=== PATIENT | male | born 1985 | race Two or more races ===

== ENCOUNTER 2025-03-12 15:54 | Inpatient (IN) | payer MEDICAID, OTHER ==
[~2025-03-12] VITALS: Ht 190.5 cm; Wt 101.0 kg
[2025-03-12] MEDS: MECLIZINE HCL 25 MG TAB PO ONE (16:30)
[2025-03-12] MEDS: SODIUM CHLORIDE 0.9% 1,000 ML IV ONE (16:30)
--- NOTE | 2025-03-12 16:51 | ED.PDOC ---
History of Present Illness HPI Comments 39 year old quadriplegic male was BIBA for the c/c of Generalized Weakness and associated N/D, and Dizziness. Pt states that his symptoms have been onset for the past 2x days with no alleviating factors. Pt denies any blood in stool, and F/C and Nephrostomy tube to left side. No other associated symptoms, modifiers, recent injuries or sick contacts present at this time. Vital signs were stable on arrival. 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 Manager Past Medical History PAST MEDICAL HISTORY: Denies Past Medical History (Other): Patient is a quadriplegic Surgical History: Unknown Family History Family History: Unknown Social History Smoker: Non-Smoker Alcohol: Denies ETOH Use Drugs: Denies Drug Use Lives In: Home Constitutional: reports: weakness; denies: chills, diaphoresis, fatigue, fever, malaise, sweats, others EENTM: denies: blurred vision, double vision, ear bleeding, ear discharge, ear drainage, ear pain, ear ringing, eye pain, eye redness, hearing loss, mouth pain, mouth swelling, nasal discharge, nose bleeding, nose congestion, nose pain , photophobia, tearing, throat pain, throat swelling, voice changes, others Respiratory: denies: cough, hemoptysis, orthopnea, SOB at rest, shortness of breath, SOB with excertion, stridor, wheezing, others Cardiovascular: denies: chest pain, dizzy spells, diaphoresis, Dyspnea on exertion, edema, irregular heart beat, left arm pain, lightheadedness, palpitations, PND, syncope, others Gastrointestinal: reports: diarrhea, nausea; denies: abdomen distended, abdominal pain, blood streaked bowels, constipated, dysphagia, difficulty swallowing, hematemesis, melena, poor appetite, poor fluid intake, rectal bleeding, rectal pain, vomiting, others Genitourinary: denies: burning, dysuria, flank pain, frequency, hematuria, incontinence, penile discharge, penile sore, pain, testicle pain, testicle swelling, urgency, others Neurological: reports: dizziness; denies: fainting, headache, left sided numbness, left sided weakness, numbness, paresthesia, pre-existing deficit, right sided numbness, right sided weakness, seizure, speech problems, tingling, tremors, weakness, others Musculoskeletal: denies: back pain, gout, joint pain, joint swelling, muscle pain, muscle stiffness, neck pain, others Integumetry: denies: bruises, change in color, change in hair/nails, dryness, laceration, lesions, lumps, rash, wounds, others Allergic/Immunocompromised: denies: Difficulty Healing, Frequent Infections, Hives, Itching, others Hematologic/Lymphatic: denies: anemia, blood clots, easy bleeding, easy bruising, swollen glands, others Endocrine: denies: excessive hunger, excessive sweating, excessive thirst, excessive urination, flushing, intolerance to cold, intolerance to heat, unexplained weight gain, unexplained weight loss, others Psychiatric: denies: anxiety, bipolar disorder, depression, hopeless, panic disorder, schizophrenia, sleepless, suicidal, others All Other Systems: Reviewed and Negative Physical Exam General Appearance: Mild Distress (Moderate distress due to dizziness concerns.), Obese HEENT: Normal ENT Inspection, Pharynx Normal, TMs Normal Neck: Non-Tender Respiratory: Chest Non-Tender, Lungs Clear, No Accessory Muscle Use, No Respiratory Distress, Normal Breath Sounds Cardiovascular: No Edema, No JVD, No Murmur, No Gallop, Normal Peripheral Pulses, Regular Rate/Rhythm Breast Exam: Deferred Gastrointestinal: No Organomegaly, Non Tender, No Pulsatile Mass, Normal Bowel Sounds, Soft Genitalia: Deferred Pelvic: Deferred Rectal: Deferred Extremities: Other (Patient is a quadriplegic) Musculoskeletal : Apperance: Normal Neurologic: Alert, Normal Mood Cerebellar Function: NOT DONE Reflexes: NOT DONE Skin: Dry, Normal Color, Warm Lymphatic: No Adenopathy Was a procedure done? Was a procedure done?: No Differential Dx Considerations may include: Sepsis, electrolyte abnormality, UTI X-Ray, Labs, Meds, VS Vital Signs Date Time Temp Pulse Resp B/P (MAP) Pulse Ox O2 Delivery O2 Flow Rate FiO2 03/12/25 18:02 98.4 87 14 90/43 (59) 94 98.4 03/12/25 17:57 83 11 97 Room Air* 0 21 03/12/25 16:18 98.3 78 18 134/82 (99) 100 98.3 03/12/25 16:01 87 Lab Test 03/12/25 17:47 03/12/25 17:09 Range/Units Urine Color Colorless Yellow Urine Clarity Clear Clear Urine pH 5.5 5.0-9.0 Urine Specific [place] 1.007 1.001-1.035 Urine Protein Negative Negative Urine Ketones Negative Negative Urine Blood Negative Negative /uL Urine Nitrite Negative Negative Urine Bilirubin Negative Negative Urine Urobilinogen Normal Negative mg/dL Urine Leukocyte Esterase 2+ Negative /uL Urine RBC 6 0 - 3 /hpf Urine Microscopic WBC 5 H 0-3 /HPF Urine Squamous Epithelial Cells Few <5 /hpf Urine Bacteria Few H None Seen /hpf Urine Yeast (Budding) Many None Seen /hpf Urine Glucose Normal Normal mg/dL White Blood Count 8.0 4.4-10.8 10^3/uL Red Blood Count 3.28 L 4.5-5.90 10^6/uL Hemoglobin 8.6 L 13.5-17.5 g/dL Hematocrit 25.0 L 41.0-53.0 % Mean Corpuscular Volume 76.2 L 80.0-100.0 fL Mean Corpuscular Hemoglobin 26.1 L 28.0-32.0 pg Mean Corpuscular Hemoglobin Concent 34.3 32.0-36.0 g/dL Red Cell Distribution Width 17.9 H 11.8-14.3 % Platelet Count 315 140-450 10^3/uL Mean Platelet Volume 7.6 6.9-10.8 fL Neutrophils (%) (Auto) 84.4 H 37.0-80.0 % Lymphocytes (%) (Auto) 8.8 L 10.0-50.0 % Monocytes (%) (Auto) 4.6 0.0-12.0 % Eosinophils (%) (Auto) 1.7 0.0-7.0 % Basophils (%) (Auto) 0.5 0.0-2.0 % Neutrophils # (Auto) 6.8 1.6-8.6 10 ^3/uL Lymphocytes # (Auto) 0.7 0.4-5.4 10 ^3/uL Monocytes # (Auto) 0.4 0-1.3 10 ^3/uL Eosinophils # (Auto) 0.1 0-0.8 10 ^3/uL Basophils # (Auto) 0 0-0.2 10 ^3/uL Nucleated Red Blood Cells 0.1 % Sodium Level 129 L 136-145 mmol/L Potassium Level 4.7 3.5-5.1 mmol/L Chloride Level 98 98-107 mmol/L Carbon Dioxide Level 24 20-31 mmol/L Anion Gap 7 5-15 Blood Urea Nitrogen 31 H 9-23 mg/dL Creatinine 1.05 0.700-1.30 mg/dL Glomerular Filtration Rate Calc 91 >90 mL/min BUN/Creatinine Ratio 29.5 H 10.0-20.0 Serum Glucose 92 74-106 mg/dL Lactic Acid Level 1.2 0.4-2.0 mmol/L Calcium Level 8.8 8.7-10.4 mg/dL Troponin I High Sensitivity < 3 L </=54 ng/L Lipase 167 H 12-53 U/L Current Medications Medications (Trade) Dose Ordered Sig/Jina Route Start Time Stop Time Status Last Admin Sodium Chloride 1,000 ml @ 250 mls/hr Q4H ONCE IV 03/12/25 16:30 03/12/25 20:29 03/12/25 16:30 Meclizine HCl (Antivert Tablet) 25 mg ONCE ONCE PO 03/12/25 16:30 03/12/25 16:31 DC 03/12/25 16:30 X-Ray, Labs, Meds, VS Comment All studies performed the ED were evaluated by me personally. Patient's urinaly sis confirmed a UTI. Patient's serum studies showed a hyponatremia state as well as a significantly elevated lipase. Patient will be admitted for IV antibiotics to address his urinary tract concerns as well as management of his pancreatitis. Time of 1ST Reevaluation: 19:06 Reevaluation 1ST: Improved Consultation: PCP Patient Education/Counseling: Diagnosis, Treatment, Need For Follow Up Family Education/Counseling: Diagnosis, Treatment, No Family Present SEPSIS Sepsis Screen Date sepsis recognized/suspect: Mar 12, 2025 Time Sepsis recognized/suspect: 6 Recent Procedure: No On Antibiotic Therapy: No Respiratory Rate >20: No Heart Rate >90: No Temp<36 C (96.8 F) or >38.3 C: No SBP <90 or MAP <65 mmHG: No New Acute Mental Status Change: No Is the patient on CPAP, BIPAP,: No Physician Orders Electrocardigram (03/12/25 16:05) Sodium Chloride 0.9% (03/12/25 16:30) Straightcath If Unable To Void (03/12/25 16:25) Heplock Iv (03/12/25 ) Vital Signs Date Time Temp Pulse Resp B/P (MAP) Pulse Ox O2 Delivery O2 Flow Rate FiO2 03/12/25 18:02 98.4 87 14 90/43 (59) 94 98.4 03/12/25 17:57 83 11 97 Room Air* 0 21 03/12/25 16:18 98.3 78 18 134/82 (99) 100 98.3 03/12/25 16:01 87 Laboratory Tests Test 03/12/25 17:09 Lactic Acid Level 1.2 mmol/L (0.4-2.0) White Blood Count 8.0 10^3/uL (4.4-10.8) Medications Medications Dose Ordered Sig/Jina Route Start Time Stop Time Status Last Admin Dose Admin Meclizine HCl 25 mg ONCE ONCE PO 03/12/25 16:30 03/12/25 16:31 DC 03/12/25 16:30 Sodium Chloride 1,000 ml @ 250 mls/hr Q4H ONCE IV 03/12/25 16:30 03/12/25 20:29 03/12/25 16:30 Departure 1 Departure Time of Disposition: 19:07 Impression: Primary Impression: Pancreatitis Additional Impressions: Hyponatremia Urinary tract infection Disposition: ADMITTED INPATIENT Condition: Stable Discharged With: Self Critical Care Note Critical Care Time?: No Stability Stability form required: No Heart Score Heart Score: Heart Score Response (Comments) Value History N/A 0 EKG N/A 0 Age N/A 0 Risk Factors N/A 0 Troponin N/A 0 Total 0 I personally scribed for NISHA HOOVER PAC ([email or web address]) on 03/12/25 at 16:51. Electr onically submitted by Conner Theodore ([email or web address]). NISHA HOOVER PAC Mar 12, 2025 16:51
[2025-03-12 17:41] LABS: Potassium 4.7 mmol/L (3.5-5.1)
[2025-03-12 17:42] LABS: Anion Gap 7 (5-15); Carbon Dioxide 24 mmol/L (20-31)
[2025-03-12 17:43] LABS: Calcium 8.8 mg/dL (8.7-10.4); Hematocrit 25.0 % (41.0-53.0); Hemoglobin 8.6 g/dL (13.5-17.5); Mean Corpuscular Hemoglobin 26.1 pg (28.0-32.0); Mean Corpuscular Volume 76.2 fL (80.0-100.0); Nucleated Red Blood Cells % 0.1 %
[2025-03-12 17:47] LABS: Chloride 98 mmol/L (98-107); Glucose 92 mg/dL (74-106); Sodium 129 mmol/L (136-145)
[2025-03-12 17:48] LABS: BUN/Creatinine Ratio 29.5 (10.0-20.0); Blood Urea Nitrogen 31 mg/dL (9-23); Lipase 167 U/L (12-53)
[2025-03-12 17:57] VITALS: PULSE 83; RESP 11; O2SAT 97
[2025-03-12 18:24] LABS: Urine Budding Yeast MANY /hpf (None Seen); Urine Protein, UAD Negative (Negative)
--- NOTE | 2025-03-12 19:15 | ECG ---
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
[2025-03-12] MEDS: cefTRIAXone 1GM/50ML D5W 50 ML IV ONE (19:33)
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
[2025-03-12] MEDS: SODIUM CHLORIDE 0.9% 1,000 ML IV SCH (22:14)
[2025-03-12] MEDS ORDERED: cefTRIAXone 1GM/50ML D5W 50 ML IV ONE (22:15)
[2025-03-12 22:34] LABS: Alanine Aminotransferase 32.0 U/L (7-40); Albumin 3.5 g/dL (3.2-4.8); Alkaline Phosphatase 91.0 U/L (46-116); Bilirubin, Direct 0.3 mg/dL (<0.3); Bilirubin, Total 0.5 mg/dL (0.2-1.0); Magnesium 2.2 mg/dL (1.6-2.6); Total Protein 7.4 g/dL (5.7-8.2)
[2025-03-12] MEDS: SODIUM CHLORIDE 0.9% 500 ML IV ONE (22:36)
[2025-03-12] MEDS: PANTOPRAZOLE 40 MG/10 ML VIAL INJ IV ONE (22:42)
[2025-03-13] VITALS (8 sets, daily range): BP systolic 104–136; BP diastolic 64–78; PULSE 84–100; RESP 18; TEMP 98–99.6; O2SAT 92–98
[2025-03-13 00:02] LABS: Cholesterol 114 mg/dL (< 200)
[2025-03-13 00:05] LABS: HDL Cholesterol 24 mg/dL (40-59); Triglycerides 176 mg/dL (< 150)
[2025-03-13] MEDS: LACTATED RINGER'S 1,000 ML IV ONE (01:01)
[2025-03-13 01:43] LABS: Opiate Scree,Urine Neg (NEGATIVE)
--- NOTE | 2025-03-13 01:45 | DVH ---
CLINICAL HISTORY: Ruled out acute pancreatitis TECHNIQUE: CT of the abdomen and pelvis was performed without intravenous contrast. This exam was per formed according to our departmental dose optimization program. Up-to-date CT equipment and radiation dose reduction techniques are utilized as appropriate. CTDI: 0.17+ 22.28 DLP: 1360.14 WID: COMPARISON: None FINDINGS: Lower Thorax: Linear bibasilar atelectasis and/or scarring. Normal-sized heart. Slight hypodensity of the blood pool relative to the myocardium indicative of anemia. Liver and Biliary system: Hepatomegaly measuring 21 cm craniocaudal. No definite hepatic lesion. Cho lelithiasis in a dilated gallbladder which measures 5.4 cm transverse. No biliary ductal dilatation. Spleen: Mild splenomegaly. Adrenal Glands and Kidneys: Normal adrenal glands. There is a left percutaneous nephrostomy tube in p lace. There is a 9.5 mm calculus in the proximal left ureter. Additional calculi are seen in the dist al left ureter measuring up to 7.1 mm on series 2, image 88. No left hydronephrosis. Additional nono bstructing left renal calculi. There is left perinephric soft tissue stranding. No right hydronephr osis or nephrolithiasis. Pancreas and Retroperitoneum: Unremarkable. Aorta and Major Vessels: Unremarkable. Bowel, Mesentery and Peritoneal space: Normal caliber small and large bowel. There is no free intrape ritoneal air or fluid collection. Pelvis: The bladder is decompressed about a Hope catheter. Mild bladder wall thickening. Prostate an d seminal vesicles are grossly unremarkable. There is no pelvic lymphadenopathy. Abdominal wall and Osseous Structures: Multilevel lower thoracic and lumbar spondylosis. Multilevel s uperior and inferior schmorl's nodes most pronounced along the inferior endplate of L4 and superior e ndplate of L5. Moderate osteoarthritis of the bilateral hips. IMPRESSION: Dilated gallbladder containing cholelithiasis. There is clinical concern for acute cholecystitis, re commend obtaining right upper quadrant ultrasound for further evaluation. Left percutaneous nephrostomy tube in place without left hydronephrosis. Multiple calculi within the left ureter, largest of which in the proximal left ureter measures 9.5 mm . Additional nonobstructing left renal calculi are noted. Mild hepatomegaly. Mild bladder wall thickening which may be due to decompression about a Hope catheter. Correlate wit h urinalysis. Anemia suggested. Correlate with CBC.
[2025-03-13 01:56] LABS: Amphetamine Screen, Urine Neg (NEGATIVE); Barbiturate Scree,Urine Neg (NEGATIVE); Benzodiazephine Screen, Urine Neg (NEGATIVE); Cannabinoid Screen, Urine Neg (NEGATIVE); Cocaine Screen, Urine Neg (NEGATIVE); Phencyclidine Screen, Urine Neg (NEGATIVE)
[2025-03-13] MEDS: SODIUM CHLORIDE 0.9% 1,000 ML IV SCH (02:50)
[2025-03-13 04:24] LABS: INR 1.02 (0.9-1.15); Partial Thromboplastin Time 30.2 SEC (24.5-34.5); Prothrombin Time 10.8 sec (9.3-11.8)
--- NOTE | 2025-03-13 06:06 | DVH ---
INDICATION: acute cholecystitis TECHNIQUE: Multiple real-time sonographic images of the abdomen were obtained. COMPARISON: None FINDINGS: The liver is heterogenous in echogenicity. The liver measures 17cm. No intrahepatic biliar y ductal dilatation is noted. The gallbladder wall measures 0.4 cm and is thickened. Multiple gallstones. Common bile duct not see n. No pericholecystic fluid is noted. The right kidney measures 12cm. No hydronephrosis. The pancreas is not well visualized due to obscuration from bowel gas. The visualized portions of the IVC and aorta are grossly unremarkable. IMPRESSION: FINDINGS SUSPICIOUS FOR ACUTE CHOLECYSTITIS. HEPATOMEGALY/HEPATIC STEATOSIS
[2025-03-13] MEDS: PIPERACILLIN-TAZOB 3.375GM 100 ML IV SCH (06:47)
[2025-03-13] MEDS ORDERED: cefTRIAXone 1GM/50ML D5W 50 ML IV SCH (09:00)
[2025-03-13 09:49] LABS: Hematocrit 26.8 % (41.0-53.0); Hemoglobin 8.9 g/dL (13.5-17.5); Mean Corpuscular Hemoglobin 25.8 pg (28.0-32.0); Mean Corpuscular Volume 77.9 fL (80.0-100.0); Nucleated Red Blood Cells % 0.0 %
[2025-03-13 10:04] LABS: Alanine Aminotransferase 23 U/L (7-40); Albumin 3.5 g/dL (3.2-4.8); Alkaline Phosphatase 81 U/L (46-116); Anion Gap 10 (5-15); BUN/Creatinine Ratio 25.0 (10.0-20.0); Bilirubin, Total 0.5 mg/dL (0.2-1.0); Blood Urea Nitrogen 23 mg/dL (9-23); Calcium 9.4 mg/dL (8.7-10.4); Carbon Dioxide 21 mmol/L (20-31); Chloride 106 mmol/L (98-107); Glucose 83 mg/dL (74-106); Potassium 4.2 mmol/L (3.5-5.1); Sodium 137 mmol/L (136-145); Total Protein 7.3 g/dL (5.7-8.2)
[2025-03-13 10:09] LABS: Iron 33.0 ug/dL (65-175); Total Iron Binding Capacity 240.0 ug/dL (250-425)
[2025-03-13] MEDS: PANTOPRAZOLE 40 MG/10 ML VIAL INJ IV SCH (10:43)
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
[2025-03-13] MEDS: D5W/SOD CHL 0.45% 1,000 ML IV SCH (18:44)
[2025-03-14] VITALS (8 sets, daily range): BP systolic 93–119; BP diastolic 61–78; PULSE 76–101; RESP 16–18; TEMP 96.3–99.6; O2SAT 94–97
[2025-03-14 08:28] LABS: Hematocrit 26.7 % (41.0-53.0); Hemoglobin 8.9 g/dL (13.5-17.5); Mean Corpuscular Hemoglobin 26.4 pg (28.0-32.0); Mean Corpuscular Volume 79.3 fL (80.0-100.0); Nucleated Red Blood Cells % 0.1 %
[2025-03-14 08:40] LABS: Anion Gap 9 (5-15); Carbon Dioxide 23 mmol/L (20-31); Potassium 4.0 mmol/L (3.5-5.1); Sodium 139 mmol/L (136-145)
[2025-03-14 08:41] LABS: Calcium 9.5 mg/dL (8.7-10.4)
[2025-03-14 08:46] LABS: BUN/Creatinine Ratio 18.8 (10.0-20.0); Blood Urea Nitrogen 18 mg/dL (9-23); Glucose 89 mg/dL (74-106)
[2025-03-14 08:49] LABS: Chloride 107 mmol/L (98-107)
[2025-03-14] MEDS: HYDROcodone-ACET 5/325MG TAB PO PRN (18:44)
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
[2025-03-15] VITALS (8 sets, daily range): BP systolic 109–147; BP diastolic 70–119; PULSE 59–82; RESP 16–18; TEMP 96.8–98.1; O2SAT 96–100
[2025-03-15 06:15] LABS: Hematocrit 25.8 % (41.0-53.0); Hemoglobin 8.5 g/dL (13.5-17.5); Mean Corpuscular Hemoglobin 26.2 pg (28.0-32.0); Mean Corpuscular Volume 79.5 fL (80.0-100.0); Nucleated Red Blood Cells % 0.1 %
[2025-03-15 06:28] LABS: Alanine Aminotransferase 19 U/L (7-40); Albumin 3.6 g/dL (3.2-4.8); Alkaline Phosphatase 78 U/L (46-116); Anion Gap 9 (5-15); BUN/Creatinine Ratio 15.5 (10.0-20.0); Blood Urea Nitrogen 16 mg/dL (9-23); Calcium 9.4 mg/dL (8.7-10.4); Carbon Dioxide 24 mmol/L (20-31); Potassium 4.3 mmol/L (3.5-5.1); Sodium 140 mmol/L (136-145); Total Protein 7.6 g/dL (5.7-8.2)
[2025-03-15 06:29] LABS: Bilirubin, Total 0.3 mg/dL (0.2-1.0)
[2025-03-15 06:35] LABS: Chloride 107 mmol/L (98-107); Glucose 113 mg/dL (74-106)
[2025-03-15] MEDS ORDERED: VANCOMYCIN PER PHARMACY 0 MG IV SCH (13:00)
[2025-03-15] MEDS: CEFEPIME 1GM/ 50ML 50 ML IV ONE (14:00)
[2025-03-15] MEDS: CEFEPIME 1GM/ 50ML 50 ML IV SCH (14:00)
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
[2025-03-15] MEDS: VANCOMYCIN 1GM/200ML PM 250 ML IV SCH (15:38)
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
[2025-03-16] VITALS (8 sets, daily range): BP systolic 95–130; BP diastolic 59–76; PULSE 74–102; RESP 17–20; TEMP 98–99.3; O2SAT 94–100
[2025-03-16] MEDS: VANCOMYCIN 1.25GM/250ML 250 ML IV SCH (01:43)
[2025-03-16 06:41] LABS: Mean Corpuscular Hemoglobin 26.3 pg (28.0-32.0)
[2025-03-16 06:44] LABS: Hematocrit 27.3 % (41.0-53.0); Hemoglobin 9.1 g/dL (13.5-17.5); Mean Corpuscular Volume 78.6 fL (80.0-100.0); Nucleated Red Blood Cells % 0.0 %
[2025-03-16 07:11] LABS: Alanine Aminotransferase 16 U/L (7-40); Albumin 3.6 g/dL (3.2-4.8); Alkaline Phosphatase 77 U/L (46-116); Anion Gap 11 (5-15); BUN/Creatinine Ratio 16.9 (10.0-20.0); Blood Urea Nitrogen 13 mg/dL (9-23); Calcium 8.9 mg/dL (8.7-10.4); Carbon Dioxide 23 mmol/L (20-31); Chloride 106 mmol/L (98-107); Glucose 79 mg/dL (74-106); Potassium 3.9 mmol/L (3.5-5.1); Sodium 140 mmol/L (136-145); Total Protein 7.6 g/dL (5.7-8.2)
[2025-03-16 07:12] LABS: Bilirubin, Total 0.4 mg/dL (0.2-1.0)
--- NOTE | 2025-03-16 09:15 | DVHPN2 ---
Progress Note Date Seen: Mar 16, 2025 Has the PT tested + for MRSA If YES, has PT been informed?: No Medical Necessity Reason Pt with a Central, PICC or Fol: No The following are medically ne: Zhang Catheter Reason for zhang catheter: Bladder Retention/Obstruc, Total Immobilization Objective vital signs Vital Sign Date Time Temp Pulse Resp B/P (MAP) Pulse Ox O2 Delivery O2 Flow Rate FiO2 03/16/25 07:54 Room Air* 0 21 03/16/25 05:00 98.1 87 18 130/68 (88) 96 98.1 Total Intake and Output 03/15/25 03/15/25 03/16/25 15:00 23:00 07:00 Intake Total 50 ml 150 ml Output Total 200 ml 800 ml Balance -150 ml -650 ml medications Current Medications Medications Dose Ordered Sig/Jina Route Start Time Stop Time Status Last Admin Dose Admin Pantoprazole Sodium 40 mg DAILY IV 03/13/25 10:00 03/15/25 10:51 40 MG Dextrose/Sodium Chloride 1,000 ml @ 125 mls/hr Q8H IV 03/13/25 14:45 03/16/25 06:11 125 MLS/HR Acetaminophen 325 mg Q4HP PRN PO 03/14/25 18:15 Acetaminophen/ Hydrocodone Bitart 1 tab Q6HPRN PRN PO 03/14/25 18:15 03/16/25 02:18 1 TAB Vancomycin HCl 0 ml @ 0 mls/hr UD IV 03/15/25 13:00 Metronidazole 100 ml @ 100 mls/hr Q8H IV 03/15/25 21:00 03/16/25 05:52 100 MLS/HR Cefepime HCl 50 ml @ 12.5 mls/hr Q8HR IV 03/15/25 14:00 03/16/25 05:52 12.5 MLS/HR Vancomycin HCl 250 ml @ 200 mls/hr Q8H IV 03/16/25 00:00 03/16/25 08:16 200 MLS/HR laboratory and microbiology Laboratory Tests 03/16/25 05:54 Test 03/16/25 05:54 Range/Units Serum Glucose 79 74-106 mg/dL Microbiology Date/Time Source Procedure Growth Status 03/14/25 01:40 Voided Urine Urine Culture - Preliminary Resulted 03/13/25 06:50 Nose MRSA Screen - Final Complete 03/13/25 02:15 Blood Blood Culture - Preliminary NO GROWTH AFTER 72 HOURS OF INCUBATION. Resulted 03/12/25 21:50 Stool Clostridium difficile Toxin Assay - Final Complete Problem List/Assessment/Plan Problem List/Assessment/Plan AFEBRILE VSS ABD SOFT NON TENDER REPEAT LIPASE HIDA SCAN CONTINUE CLOSE OBSERVATION Plan discussed with: Patient ANISH ADHIKARI MD Mar 16, 2025 09:15
[2025-03-16] MEDS: MORPHINE SULFATE INJ 2 MG/ml SYRG IV ONE (10:45)
--- NOTE | 2025-03-16 13:53 | DVH ---
Procedure: NM NM HIDA SCAN Exam Date: 03/16/2025 09:12 AM Clinical History: Pain; Diagnose cholecystitis Comparison Study: 03/13/2025 Nuclear Medicine Hepatobiliary Scan. Technique: Following the intravenous administration of 6 mCi of technetium 99m labeled Mebrofenin multiple plana r abdominal planar images were obtained in anterior projection in 5 minute intervals for45 minutes . Right lateral images were obtained at 3 hours after injection. Findings/Impression: Gallbladder is not visualized consistent with acute cholecystitis. There is prompt excretion of radiotracer into the small bowel suggestive of patent common bile duct.
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
[2025-03-17] VITALS (8 sets, daily range): BP systolic 96–158; BP diastolic 46–90; PULSE 62–97; RESP 16–19; TEMP 97.9–99; O2SAT 96–100
[2025-03-17 09:37] LABS: Hemoglobin 9.0 g/dL (13.5-17.5); Nucleated Red Blood Cells % 0.1 %
[2025-03-17 09:39] LABS: Hematocrit 27.7 % (41.0-53.0); Mean Corpuscular Hemoglobin 25.4 pg (28.0-32.0); Mean Corpuscular Volume 78.2 fL (80.0-100.0)
[2025-03-17 09:56] LABS: Alanine Aminotransferase 17 U/L (7-40); Albumin 3.6 g/dL (3.2-4.8); Alkaline Phosphatase 72 U/L (46-116); Anion Gap 9 (5-15); BUN/Creatinine Ratio 20.5 (10.0-20.0); Bilirubin, Total 0.4 mg/dL (0.2-1.0); Blood Urea Nitrogen 16 mg/dL (9-23); Calcium 9.4 mg/dL (8.7-10.4); Carbon Dioxide 25 mmol/L (20-31); Glucose 91 mg/dL (74-106); Potassium 3.7 mmol/L (3.5-5.1); Sodium 142 mmol/L (136-145); Total Protein 7.3 g/dL (5.7-8.2)
[2025-03-17 10:06] LABS: Chloride 108 mmol/L (98-107)
--- NOTE | 2025-03-17 11:03 | DVHPN2 ---
Progress Note Date Seen: Mar 17, 2025 Has the PT tested + for MRSA If YES, has PT been informed?: No Medical Necessity Reason Pt with a Central, PICC or Fol: Yes The following are medically ne: Zhang Catheter Reason for zhang catheter: Bladder Retention/Obstruc, Total Immobilization Objective vital signs Vital Sign Date Time Temp Pulse Resp B/P (MAP) Pulse Ox O2 Delivery O2 Flow Rate FiO2 03/17/25 08:32 98.4 78 19 128/82 (97) 99 98.4 03/16/25 20:00 Room Air* 0 21 Total Intake and Output 03/16/25 03/16/25 03/17/25 15:00 23:00 07:00 Intake Total 918 ml 950 ml Output Total 900 ml 400 ml Balance 18 ml 550 ml medications Current Medications Medications Dose Ordered Sig/Jina Route Start Time Stop Time Status Last Admin Dose Admin Pantoprazole Sodium 40 mg DAILY IV 03/13/25 10:00 03/17/25 08:49 40 MG Dextrose/Sodium Chloride 1,000 ml @ 125 mls/hr Q8H IV 03/13/25 14:45 03/17/25 05:40 125 MLS/HR Acetaminophen 325 mg Q4HP PRN PO 03/14/25 18:15 Acetaminophen/ Hydrocodone Bitart 1 tab Q6HPRN PRN PO 03/14/25 18:15 03/16/25 22:15 1 TAB Vancomycin HCl 0 ml @ 0 mls/hr UD IV 03/15/25 13:00 Metronidazole 100 ml @ 100 mls/hr Q8H IV 03/15/25 21:00 03/17/25 05:40 100 MLS/HR Cefepime HCl 50 ml @ 12.5 mls/hr Q8HR IV 03/15/25 14:00 03/17/25 05:40 12.5 MLS/HR Vancomycin HCl 250 ml @ 200 mls/hr Q8H IV 03/16/25 00:00 Hold 03/16/25 08:16 200 MLS/HR Vancomycin HCl 250 ml @ 200 mls/hr Q12H IV 03/17/25 12:00 UNV laboratory and microbiology Laboratory Tests 03/17/25 09:00 Test 03/17/25 09:00 Range/Units Serum Glucose 91 74-106 mg/dL Microbiology Date/Time Source Procedure Growth Status 03/14/25 01:40 Voided Urine Urine Culture - Final Complete 03/13/25 06:50 Nose MRSA Screen - Final Complete 03/13/25 02:15 Blood Blood Culture - Preliminary NO GROWTH AFTER 72 HOURS OF INCUBATION. Resulted 03/12/25 21:50 Stool Clostridium difficile Toxin Assay - Final Complete Problem List/Assessment/Plan Problem List/Assessment/Plan AFEBRILE VSS ABD SOFT NON TENDER REPEAT LIPASE TRENDING DOWN HIDA SCAN POSITIVE HIGH RISK FOR SURGERY LIPASE ELEVATED TRENDING DOWN OPTIONS DISCUSSED PT TO DECIDE ALLOW CLEAR LIQUIDS CONSIDER EMERGENT SURGERY BASED ON ONGOING EVAL NURSE AT BEDSIDE Plan discussed with: Patient ANISH ADHIKARI MD Mar 17, 2025 11:03
[2025-03-17] MEDS ORDERED: VANCOMYCIN 1.25GM/250ML 250 ML IV SCH (12:00)
[2025-03-17] MEDS: VANCOMYCIN 1.25GM/250ML 250 ML IV SCH (12:11)
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
[2025-03-18] VITALS (19 sets, daily range): BP systolic 71–142; BP diastolic 33–92; PULSE 63–103; RESP 12–17; TEMP 97.4–98.7; O2SAT 92–100
[2025-03-18 07:06] LABS: Alanine Aminotransferase 12 U/L (7-40); Albumin 3.6 g/dL (3.2-4.8); Alkaline Phosphatase 71 U/L (46-116); Anion Gap 11 (5-15); BUN/Creatinine Ratio 14.9 (10.0-20.0); Bilirubin, Total 0.3 mg/dL (0.2-1.0); Blood Urea Nitrogen 10 mg/dL (9-23); Calcium 8.8 mg/dL (8.7-10.4); Carbon Dioxide 21 mmol/L (20-31); Glucose 92 mg/dL (74-106); Potassium 3.7 mmol/L (3.5-5.1); Sodium 139 mmol/L (136-145); Total Protein 7.5 g/dL (5.7-8.2)
[2025-03-18 07:07] LABS: Chloride 107 mmol/L (98-107); Lipase 63 U/L (12-53)
[2025-03-18 07:18] LABS: Hematocrit 29.8 % (41.0-53.0); Hemoglobin 9.6 g/dL (13.5-17.5); Mean Corpuscular Hemoglobin 26.1 pg (28.0-32.0); Mean Corpuscular Volume 81.1 fL (80.0-100.0); Nucleated Red Blood Cells % 0.3 %
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
--- NOTE | 2025-03-18 10:14 | DVHPN2 ---
Progress Note Date Seen: Mar 18, 2025 Has the PT tested + for MRSA If YES, has PT been informed?: No Medical Necessity Reason Pt with a Central, PICC or Fol: Yes The following are medically ne: Zhang Catheter Reason for zhang catheter: Bladder Retention/Obstruc, Total Immobilization Objective vital signs Vital Sign Date Time Temp Pulse Resp B/P (MAP) Pulse Ox O2 Delivery O2 Flow Rate FiO2 03/18/25 09:00 98.1 103 15 142/86 (104) 93 98.1 03/18/25 07:58 Room Air* 0 21 Total Intake and Output 03/17/25 03/17/25 03/18/25 15:00 23:00 07:00 Intake Total 1400 ml 810 ml 1100 ml Output Total 731 ml 1350 ml Balance 1400 ml 79 ml -250 ml medications Current Medications Medications Dose Ordered Sig/Jina Route Start Time Stop Time Status Last Admin Dose Admin Pantoprazole Sodium 40 mg DAILY IV 03/13/25 10:00 03/17/25 08:49 40 MG Dextrose/Sodium Chloride 1,000 ml @ 125 mls/hr Q8H IV 03/13/25 14:45 03/18/25 05:23 125 MLS/HR Acetaminophen 325 mg Q4HP PRN PO 03/14/25 18:15 Acetaminophen/ Hydrocodone Bitart 1 tab Q6HPRN PRN PO 03/14/25 18:15 03/17/25 21:35 1 TAB Vancomycin HCl 0 ml @ 0 mls/hr UD IV 03/15/25 13:00 Metronidazole 100 ml @ 100 mls/hr Q8H IV 03/15/25 21:00 03/18/25 05:15 100 MLS/HR Cefepime HCl 50 ml @ 12.5 mls/hr Q8HR IV 03/15/25 14:00 03/18/25 05:25 12.5 MLS/HR Vancomycin HCl 250 ml @ 200 mls/hr Q12H IV 03/17/25 12:00 03/18/25 00:15 200 MLS/HR laboratory and microbiology Laboratory Tests 03/18/25 06:05 Test 03/18/25 06:05 Range/Units Serum Glucose 92 74-106 mg/dL Microbiology Date/Time Source Procedure Growth Status 03/14/25 01:40 Voided Urine Urine Culture - Final Complete 03/13/25 06:50 Nose MRSA Screen - Final Complete 03/13/25 02:15 Blood Blood Culture - Final NO GROWTH AFTER 5 DAYS OF INCUBATION. Complete 03/12/25 21:50 Stool Clostridium difficile Toxin Assay - Final Complete Problem List/Assessment/Plan Problem List/Assessment/Plan AFEBRILE VSS ABD SOFT TENDER HIDA SCAN POSITIVE HIGH RISK FOR SURGERY LIPASE ELEVATED TRENDING DOWN OPTIONS DISCUSSED PT TO DECIDE KEEP NPO CONSIDER EMERGENT IR EVAL FOR PERCUTANEOUS CHOLECYSTOSTOMY NURSE AT BEDSIDE Plan discussed with: Patient My Orders My Orders Orders - ANISH ADHIKARI MD Procedure Category Date Status Time Clear Liq Diet DIET 03/17/25 Transmitted Lunch Dietary Evaluation Review Comments: 1) TPN if continue NPO 2) Advance deit as medically feasible Expected Outcomes/Goals: To meet >75% estimated needs Fu 3-5 days ANISH ADHIKARI MD Mar 18, 2025 10:14
[2025-03-18] MEDS: LIDOCAINE 2%HCL (LOCAL ANESTH.) INJ 20ML MDV ONE (12:52)
[2025-03-18] MEDS: IODIXANOL 320MG/ML 100ML BTL IV ONE (12:53)
[2025-03-18] MEDS: fentaNYL CITRATE 100 MCG/2 ML VL ONE (12:56)
[2025-03-18] MEDS: MIDAZOLAM HCL 2MG/2ML 2ml VIAL (1mg/ml) ONE (12:56)
--- NOTE | 2025-03-18 14:04 | DVH ---
PROCEDURE: Cholecystostomy tube placement Procedural Personnel Attending physician(s): Vignesh Price Fellow physician(s): None Resident physician(s): None Advanced practice provider(s): None Pre-procedure diagnosis: Acute calculous cholecystitis Post-procedure diagnosis: Same Indication: Acute cholecystitis Additional clinical history: None Complications: No immediate complications. IMPRESSION: Insertion of cholecystostomy tube with drainage of normal-appearing bile. Plan: Flush drain with 10 mL normal saline daily to maintain patency. PROCEDURE SUMMARY: - Cholecystostomy tube placement under ultrasound and fluoroscopic guidance - Additional procedure(s): None PROCEDURE DETAILS: Pre-procedure Consent: Informed consent for the procedure including risks, benefits and alternatives was obtained a nd time-out was performed prior to the procedure. Preparation: The site was prepared and draped using maximal sterile barrier technique including cutan eous antisepsis. Anesthesia/sedation Level of anesthesia/sedation: Moderate sedation (conscious sedation) Anesthesia/sedation administered by: Independent trained observer under attending supervision with co ntinuous monitoring of the patient s level of consciousness and physiologic status Total intra-service sedation time (minutes): 30 Cholecystostomy tube placement Initial imaging was performed. Local anesthesia was administered. The gallbladder was accessed via a transhepatic approach using an access needle followed by wire insertion and serial dilation and a cho lecystostomy tube was placed. Position within the gallbladder was confirmed. Imaging findings: Internal gallstones. Moderately distended gallbladder. No contrast opacification of the cystic duct, concordant with obstruction Cholecystostomy tube placed: 8.5 Fr multipurpose drain External catheter securement: Non-absorbable suture and adhesive anchoring device Contrast Contrast agent: Omnipaque 350 Contrast volume (mL): [address] dose length product (Not applicable) Fluoroscopy time (minutes): 1.1 Reference air kerma (mGy): 33 Kerma area product (Not provided by imaging equipment) Not Used Additional Details Additional description of procedure: None Equipment details: None Registry event: V/ 4/f Device used: None Unique Device Identifiers: Not available Specimens removed: Aspirated fluid was not sent for analysis. Estimated blood loss (mL): 0 Standardized report: [email or web address] Attestation Signer name: Vignesh Price I attest that I was present for the entire procedure. I reviewed the stored images and agree with the report as written.
[2025-03-18] MEDS: KETOROLAC TROMETH 30 MG/ML 1ML VIAL IV ONE (18:18)
[2025-03-19] VITALS (7 sets, daily range): BP systolic 101–148; BP diastolic 69–94; PULSE 82–94; RESP 17–20; TEMP 97.5–98.7; O2SAT 96–98
[2025-03-19] MEDS: MORPHINE SULFATE INJ 2 MG/ml SYRG IV PRN (00:36)
[2025-03-19 07:33] LABS: Anion Gap 9 (5-15); Carbon Dioxide 22 mmol/L (20-31); Sodium 140 mmol/L (136-145)
[2025-03-19 07:34] LABS: Calcium 9.3 mg/dL (8.7-10.4)
[2025-03-19 07:39] LABS: BUN/Creatinine Ratio 11.9 (10.0-20.0); Blood Urea Nitrogen 8 mg/dL (9-23); Chloride 109 mmol/L (98-107); Glucose 101 mg/dL (74-106); Potassium 3.5 mmol/L (3.5-5.1)
[2025-03-19 07:48] LABS: Hematocrit 30.1 % (41.0-53.0); Hemoglobin 9.8 g/dL (13.5-17.5); Mean Corpuscular Hemoglobin 26.0 pg (28.0-32.0); Mean Corpuscular Volume 80.0 fL (80.0-100.0); Nucleated Red Blood Cells % 0.1 %
[2025-03-19] MEDS: VANCOMYCIN 1.25GM/250ML 250 ML IV SCH (12:59)
--- NOTE | 2025-03-19 13:46 | DVHPN2 ---
Progress Note Date Seen: Mar 19, 2025 Has the PT tested + for MRSA If YES, has PT been informed?: No Medical Necessity Reason Pt with a Central, PICC or Fol: Yes The following are medically ne: Zhang Catheter Reason for zhang catheter: Bladder Retention/Obstruc, Total Immobilization Objective vital signs Vital Sign Date Time Temp Pulse Resp B/P (MAP) Pulse Ox O2 Delivery O2 Flow Rate FiO2 03/19/25 11:07 82 18 135/94 03/19/25 09:00 98.7 96 98.7 03/19/25 08:00 Room Air* 0 21 Total Intake and Output 03/18/25 03/18/25 03/19/25 14:59 22:59 06:59 Intake Total 50 ml 2200 ml 1050 ml Output Total 1300 ml 1325 ml Balance 50 ml 900 ml -275 ml medications Current Medications Medications Dose Ordered Sig/Jina Route Start Time Stop Time Status Last Admin Dose Admin Pantoprazole Sodium 40 mg DAILY IV 03/13/25 10:00 03/19/25 10:21 40 MG Dextrose/Sodium Chloride 1,000 ml @ 125 mls/hr Q8H IV 03/13/25 14:45 03/19/25 06:09 125 MLS/HR Acetaminophen 325 mg Q4HP PRN PO 03/14/25 18:15 Vancomycin HCl 0 ml @ 0 mls/hr UD IV 03/15/25 13:00 Metronidazole 100 ml @ 100 mls/hr Q8H IV 03/15/25 21:00 03/19/25 04:58 100 MLS/HR Cefepime HCl 50 ml @ 12.5 mls/hr Q8HR IV 03/15/25 14:00 03/19/25 06:07 12.5 MLS/HR Acetaminophen/ Hydrocodone Bitart 1 tab Q4HPRN PRN PO 03/18/25 17:30 Morphine Sulfate 2 mg Q4HPRN PRN IV 03/18/25 17:30 03/19/25 10:37 2 MG Vancomycin HCl 250 ml @ 200 mls/hr Q16H IV 03/19/25 12:00 03/19/25 12:59 200 MLS/HR laboratory and microbiology Laboratory Tests 03/19/25 06:54 Test 03/19/25 06:54 Range/Units Serum Glucose 101 74-106 mg/dL Microbiology Date/Time Source Procedure Growth Status 03/14/25 01:40 Voided Urine Urine Culture - Final Complete 03/13/25 06:50 Nose MRSA Screen - Final Complete 03/13/25 02:15 Blood Blood Culture - Final NO GROWTH AFTER 5 DAYS OF INCUBATION. Complete 03/12/25 21:50 Stool Clostridium difficile Toxin Assay - Final Complete Problem List/Assessment/Plan Problem List/Assessment/Plan AFEBRILE VSS ABD SOFT TENDER HIDA SCAN POSITIVE HIGH RISK FOR SURGERY LIPASE ELEVATED TRENDING DOWN OPTIONS DISCUSSED PT TO DECIDE KEEP NPO PERCUTANEOUS CHOLECYSTOSTOMY BY IR DONE NURSE AT BEDSIDE Plan discussed with: Patient Dietary Evaluation Review Comments: 1) TPN if continue NPO 2) Advance deit as medically feasible Expected Outcomes/Goals: To meet >75% estimated needs Fu 3-5 days ANISH ADHIKARI MD Mar 19, 2025 13:46
[2025-03-19] MEDS ORDERED: MIDAZOLAM HCL 2MG/2ML 2ml VIAL (1mg/ml) ONE (14:52)
[2025-03-19] MEDS ORDERED: fentaNYL CITRATE 100 MCG/2 ML VL ONE ×2 (14:52→15:05)
[2025-03-19] MEDS ORDERED: PROPOFOL 10 MG/ML 20 ML IV ONE (14:53)
[2025-03-19] MEDS ORDERED: IOHEXOL 300 MG/ML 100ML BOTTLE IJ ONE (14:57)
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
[2025-03-19] MEDS ORDERED: PHENYLEPHRINE HCL 10 MG/ML VL ONE (15:17)
--- NOTE | 2025-03-19 15:26 | DVHNC2 ---
Procedure - OPERATIVE REPORT Pre-op. Diagnosis: Renal Stones- Left Left proximal ureteral stone, 1 cm long Contracted LE, cystoscopy not feasible Post-op. Diagnosis: Same as pre-op diagnosis Operation: Extracorporeal Shockwave Lithotripsy Left antegrade nephrostogram Anesthesia: General Indications: Patient was found to have symptomatic Urolithiasis. Patient is here to undergo ESWL therapy. Informed Consent: The procedure was explained to the patient. It's risks include but not limited to infection, bleeding, and damage to the kidney. Patient fully understood and signed the consent. Other options such as watchful waiting, Ureteroscopy, Percutaneous surgery and open surgery were also discussed. Details of Procedure: Under satisfactory anesthesia, the patient was positioned on the lithotripsy table. Using fluoroscopy the stone was localized with contrast injected into the left nephrostomy tube. Nephrostogram verified the proximal/mid ureteral stones. Starting at low energy levels, shockwave treatment was commenced. The energy level was gradually increased and stone was fragmented. Once the treatment was completed, patient was then taken off the lithotripsy table and sent to recovery room in stable condition. Specimens: None Complications: None Findings: Stone Laterality: Left proximal ureteral stones Shocks Delivered: 3000 Max Power settin Fragmentation Quality: Well Left nephrostomy tube closed. Notes: Patient will need ESWL of left renal stones in 3-4 weeks. ROSINA DHILLON MD Mar 19, 2025 15:26
[2025-03-19] MEDS: HYDROcodone-ACET 10/325MG TAB PO PRN (20:15)
[2025-03-20] VITALS (8 sets, daily range): BP systolic 101–153; BP diastolic 58–89; PULSE 74–98; RESP 17–19; TEMP 98.2–99.5; O2SAT 94–98
--- NOTE | 2025-03-20 06:42 | DVHPNRES ---
Progress Note Has the PT tested + for MRSA If YES, has PT been informed?: No Medical Necessity Reason Pt with a Central, PICC or Fol: Yes The following are medically ne: Zhang Catheter Reason for zhang catheter: Bladder Retention/Obstruc, Total Immobilization Objective vital signs Vital Sign Date Time Temp Pulse Resp B/P (MAP) Pulse Ox O2 Delivery O2 Flow Rate FiO2 03/20/25 01:00 98.8 95 19 110/74 (86) 96 98.8 03/19/25 20:00 Room Air* 0 21 Total Intake and Output 03/19/25 03/19/25 03/20/25 15:00 23:00 07:00 Intake Total 100 ml Balance 100 ml medications Current Medications Medications Dose Ordered Sig/Jina Route Start Time Stop Time Status Last Admin Dose Admin Pantoprazole Sodium 40 mg DAILY IV 03/13/25 10:00 03/19/25 10:21 40 MG Dextrose/Sodium Chloride 1,000 ml @ 125 mls/hr Q8H IV 03/13/25 14:45 03/19/25 14:45 125 MLS/HR Acetaminophen 325 mg Q4HP PRN PO 03/14/25 18:15 Vancomycin HCl 0 ml @ 0 mls/hr UD IV 03/15/25 13:00 Metronidazole 100 ml @ 100 mls/hr Q8H IV 03/15/25 21:00 03/19/25 21:53 100 MLS/HR Cefepime HCl 50 ml @ 12.5 mls/hr Q8HR IV 03/15/25 14:00 03/19/25 23:43 12.5 MLS/HR Acetaminophen/ Hydrocodone Bitart 1 tab Q4HPRN PRN PO 03/18/25 17:30 03/19/25 20:15 1 TAB Morphine Sulfate 2 mg Q4HPRN PRN IV 03/18/25 17:30 03/19/25 10:37 2 MG Vancomycin HCl 250 ml @ 200 mls/hr Q16H IV 03/19/25 12:00 03/19/25 12:59 200 MLS/HR laboratory and microbiology Test 03/20/25 06:06 Range/Units Serum Glucose Pending Microbiology Date/Time Source Procedure Growth Status 03/14/25 01:40 Voided Urine Urine Culture - Final Complete 03/13/25 06:50 Nose MRSA Screen - Final Complete 03/13/25 02:15 Blood Blood Culture - Final NO GROWTH AFTER 5 DAYS OF INCUBATION. Complete 03/12/25 21:50 Stool Clostridium difficile Toxin Assay - Final Complete Dietary Evaluation Review Comments: 1) TPN if continue NPO 2) Advance deit as medically feasible Expected Outcomes/Goals: To meet >75% estimated needs Fu 3-5 days ZACK BAUTISTA RESIDENT Mar 20, 2025 06:41
[2025-03-20 06:52] LABS: Anion Gap 10 (5-15); Carbon Dioxide 23 mmol/L (20-31); Sodium 142 mmol/L (136-145)
[2025-03-20 06:53] LABS: Calcium 9.0 mg/dL (8.7-10.4); Chloride 109 mmol/L (98-107); Potassium 3.4 mmol/L (3.5-5.1)
[2025-03-20 06:58] LABS: BUN/Creatinine Ratio 11.9 (10.0-20.0); Glucose 85 mg/dL (74-106)
[2025-03-20 06:59] LABS: Hemoglobin 9.2 g/dL (13.5-17.5); Mean Corpuscular Volume 79.3 fL (80.0-100.0)
[2025-03-20 07:01] LABS: Hematocrit 28.0 % (41.0-53.0); Mean Corpuscular Hemoglobin 26.0 pg (28.0-32.0); Nucleated Red Blood Cells % 0.1 %
[2025-03-20 07:11] LABS: Blood Urea Nitrogen 8 mg/dL (9-23)
--- NOTE | 2025-03-20 10:06 | DVHPN2 ---
Progress Note Date Seen: Mar 20, 2025 Has the PT tested + for MRSA If YES, has PT been informed?: No Medical Necessity Reason Pt with a Central, PICC or Fol: Yes The following are medically ne: Zhang Catheter Reason for zhang catheter: Bladder Retention/Obstruc, Total Immobilization Objective vital signs Vital Sign Date Time Temp Pulse Resp B/P (MAP) Pulse Ox O2 Delivery O2 Flow Rate FiO2 03/20/25 08:58 99.1 96 17 102/61 (75) 98 99.1 03/19/25 20:00 Room Air* 0 21 Total Intake and Output 03/19/25 03/19/25 03/20/25 15:00 23:00 07:00 Intake Total 100 ml 990 ml Output Total 1050 ml Balance 100 ml -60 ml medications Current Medications Medications Dose Ordered Sig/Jina Route Start Time Stop Time Status Last Admin Dose Admin Pantoprazole Sodium 40 mg DAILY IV 03/13/25 10:00 03/19/25 10:21 40 MG Dextrose/Sodium Chloride 1,000 ml @ 125 mls/hr Q8H IV 03/13/25 14:45 03/19/25 14:45 125 MLS/HR Acetaminophen 325 mg Q4HP PRN PO 03/14/25 18:15 Vancomycin HCl 0 ml @ 0 mls/hr UD IV 03/15/25 13:00 Metronidazole 100 ml @ 100 mls/hr Q8H IV 03/15/25 21:00 03/19/25 21:53 100 MLS/HR Cefepime HCl 50 ml @ 12.5 mls/hr Q8HR IV 03/15/25 14:00 03/19/25 23:43 12.5 MLS/HR Acetaminophen/ Hydrocodone Bitart 1 tab Q4HPRN PRN PO 03/18/25 17:30 03/20/25 06:46 1 TAB Morphine Sulfate 2 mg Q4HPRN PRN IV 03/18/25 17:30 03/19/25 10:37 2 MG Vancomycin HCl 250 ml @ 200 mls/hr Q16H IV 03/19/25 12:00 03/19/25 12:59 200 MLS/HR laboratory and microbiology Laboratory Tests 03/20/25 06:06 Test 03/20/25 06:06 Range/Units Serum Glucose 85 74-106 mg/dL Microbiology Date/Time Source Procedure Growth Status 03/14/25 01:40 Voided Urine Urine Culture - Final Complete 03/13/25 06:50 Nose MRSA Screen - Final Complete 03/13/25 02:15 Blood Blood Culture - Final NO GROWTH AFTER 5 DAYS OF INCUBATION. Complete 03/12/25 21:50 Stool Clostridium difficile Toxin Assay - Final Complete Problem List/Assessment/Plan Problem List/Assessment/Plan AFEBRILE VSS ABD SOFT NON TENDER HIGH RISK FOR SURGERY LIPASE ELEVATED TRENDING DOWN PERCUTANEOUS CHOLECYSTOSTOMY BY IR DONE DRAINAGE 100 CC LOPEZ DIET NURSE AT BEDSIDE REPEAT LABS AM CLOSE OBSERVATION Plan discussed with: Patient Dietary Evaluation Review Comments: 1) TPN if continue NPO 2) Advance deit as medically feasible Expected Outcomes/Goals: To meet >75% estimated needs Fu 3-5 days ANISH ADHIKARI MD Mar 20, 2025 10:06
[2025-03-20] MEDS: POTASSIUM EFFERVESENT TAB 25 MEQ PO ONE (10:38)
--- NOTE | 2025-03-20 15:56 | DVH ---
Date: 03/20/2025 11:37 AM Examination: XY KUB ABDOMEN SINGLE VIEW History: hypoactive bs Comparison: None TECHNIQUE: Frontal views of the abdomen was obtained. FINDINGS: Bowel gas pattern is unremarkable. Left nephrostomy tube in place The lung bases are unremarkable. No acute osseous abnormality identified. IMPRESSION: 1. Nonobstructive bowel gas pattern. No abnormally dilated bowel. 2. Left nephrostomy tube in place.
[2025-03-20] MEDS: VANCOMYCIN 1.25GM/250ML 250 ML IV SCH (17:26)
[2025-03-20] MEDS: ACETAMINOPHEN 325 MG TAB PO PRN (17:29)
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
[2025-03-20] MEDS: AMPICILLIN & SULBACTAM SODIUM 3 GM in SODIUM CHL 0.9% 100 ML IV SCH (20:17)
[2025-03-21 05:00] VITALS: BP 121/77; PULSE 98; RESP 18; TEMP 98.1; O2SAT 94
[2025-03-21 07:06] LABS: Hemoglobin 9.1 g/dL (13.5-17.5)
[2025-03-21 07:09] LABS: Hematocrit 27.9 % (41.0-53.0); Mean Corpuscular Hemoglobin 26.4 pg (28.0-32.0); Mean Corpuscular Volume 80.5 fL (80.0-100.0); Nucleated Red Blood Cells % 0.3 %
[2025-03-21 07:26] LABS: Albumin 3.6 g/dL (3.2-4.8); Alkaline Phosphatase 62 U/L (46-116); Anion Gap 11 (5-15); Calcium 9.2 mg/dL (8.7-10.4); Carbon Dioxide 22 mmol/L (20-31); Glucose 79 mg/dL (74-106); Magnesium 1.9 mg/dL (1.6-2.6); Potassium 3.6 mmol/L (3.5-5.1); Sodium 140 mmol/L (136-145); Total Protein 7.2 g/dL (5.7-8.2)
[2025-03-21 07:27] LABS: Bilirubin, Total 0.4 mg/dL (0.2-1.0)
[2025-03-21 07:29] LABS: Alanine Aminotransferase < 9 U/L (7-40); Blood Urea Nitrogen 6 mg/dL (9-23); Chloride 107 mmol/L (98-107)
[2025-03-21 07:33] LABS: BUN/Creatinine Ratio 9.0 (10.0-20.0)
[2025-03-21 08:00] VITALS: PULSE 115
[2025-03-21 09:05] VITALS: BP 111/73; PULSE 99; RESP 19; TEMP 97.5; O2SAT 95
--- NOTE | 2025-03-21 12:24 | DVHPN2 ---
Progress Note Date Seen: Mar 21, 2025 Has the PT tested + for MRSA If YES, has PT been informed?: No Medical Necessity Reason Pt with a Central, PICC or Fol: Yes The following are medically ne: Zhang Catheter Reason for zhang catheter: Bladder Retention/Obstruc, Total Immobilization Objective vital signs Vital Sign Date Time Temp Pulse Resp B/P (MAP) Pulse Ox O2 Delivery O2 Flow Rate FiO2 03/21/25 09:05 97.5 99 19 111/73 (86) 95 97.5 03/20/25 20:00 Room Air* 0 21 Total Intake and Output 03/20/25 03/20/25 03/21/25 15:00 23:00 07:00 Intake Total 100 ml 515 ml Output Total 550 ml 1195 ml Balance 100 ml -35 ml -1195 ml medications Current Medications Medications Dose Ordered Sig/Jina Route Start Time Stop Time Status Last Admin Dose Admin Pantoprazole Sodium 40 mg DAILY IV 03/13/25 10:00 03/21/25 08:44 40 MG Dextrose/Sodium Chloride 1,000 ml @ 125 mls/hr Q8H IV 03/13/25 14:45 03/19/25 14:45 125 MLS/HR Acetaminophen 325 mg Q4HP PRN PO 03/14/25 18:15 03/20/25 17:29 325 MG Acetaminophen/ Hydrocodone Bitart 1 tab Q4HPRN PRN PO 03/18/25 17:30 03/20/25 20:25 1 TAB Morphine Sulfate 2 mg Q4HPRN PRN IV 03/18/25 17:30 03/20/25 13:18 2 MG Ampicillin Sodium/ Sulbactam Sodium 3 gm/Sodium Chloride 100 ml @ 100 mls/hr Q6H IV 03/20/25 20:00 03/21/25 09:03 100 MLS/HR laboratory and microbiology Laboratory Tests 03/21/25 06:22 Test 03/21/25 06:22 Range/Units Serum Glucose 79 74-106 mg/dL Microbiology Date/Time Source Procedure Growth Status 03/20/25 10:42 Blood Blood Culture - Preliminary NO GROWTH AFTER 24 HOURS OF INCUBATION. Resulted 03/14/25 01:40 Voided Urine Urine Culture - Final Complete 03/13/25 06:50 Nose MRSA Screen - Final Complete 03/12/25 21:50 Stool Clostridium difficile Toxin Assay - Final Complete Problem List/Assessment/Plan Problem List/Assessment/Plan AFEBRILE VSS ABD SOFT NON TENDER HIGH RISK FOR SURGERY PERCUTANEOUS CHOLECYSTOSTOMY DRAIN IN PLACE DRAINAGE 100 CC LOPEZ DIET NURSE AT BEDSIDE REPEAT LABS AM CLOSE OBSERVATION Plan discussed with: Patient Dietary Evaluation Review Comments: 1) TPN if continue NPO 2) Advance deit as medically feasible Expected Outcomes/Goals: To meet >75% estimated needs Fu 3-5 days ANISH ADHIKARI MD Mar 21, 2025 12:24
[2025-03-21 13:57] VITALS: BP 169/99; PULSE 84; RESP 19; TEMP 99.1; O2SAT 97
[2025-03-21] MEDS ORDERED: AUG875T PO (14:45)
[2025-03-21] MEDS ORDERED: HYDR-4798 PO (14:54)
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
[2025-03-21 17:06] VITALS: BP 152/97; PULSE 73; RESP 19; TEMP 98.4; O2SAT 97
== END 2025-03-21 16:53 | disposition home or self-care (01) | DRG 710 ==
LOC: ER 15:54 → EDBD 15:54 → OVERFLOW 21:57 → WEST WING 03-13 01:18 → TELE-WESTW 03-14 06:55
PROVIDERS: ADMIT Student in an Organized Health Care Education/Training Program; ATTEND Student in an Organized Health Care Education/Training Program
PROC: 0F9430Z Drainage of Gallbladder with Drainage Device, Percutaneous Approach (ICD-10-PCS; 2025-03-18)
PROC: BF121ZZ Fluoroscopy of Gallbladder using Low Osmolar Contrast (ICD-10-PCS; 2025-03-18)
PROC: BT141ZZ Fluoroscopy of Kidneys, Ureters and Bladder using Low Osmolar Contrast (ICD-10-PCS; 2025-03-19)
PROC: 0TC73ZZ Extirpation of Matter from Left Ureter, Percutaneous Approach (ICD-10-PCS; principal; 2025-03-19 14:47)
DX: A41.81 Sepsis due to Enterococcus (principal); G82.50 Quadriplegia, unspecified; K85.90 Acute pancreatitis without necrosis or infection, unspecified; K80.00 Calculus of gallbladder with acute cholecystitis without obstruction; R16.0 Hepatomegaly, not elsewhere classified; E87.1 Hypo-osmolality and hyponatremia; K52.9 Noninfective gastroenteritis and colitis, unspecified; M16.0 Bilateral primary osteoarthritis of hip; N30.00 Acute cystitis without hematuria; K82.8 Other specified diseases of gallbladder; D50.9 Iron deficiency anemia, unspecified; Z93.6 Other artificial openings of urinary tract status; Z88.1 Allergy status to other antibiotic agents; Z82.49 Family history of ischemic heart disease and other diseases of the circulatory system; Z83.3 Family history of diabetes mellitus; Z87.442 Personal history of urinary calculi; Z83.49 Family history of other endocrine, nutritional and metabolic diseases
CPT/HCPCS: 36415; 47532; 74018; 74176; 76705; 76942; 78226; 80048; 80053; 80061; 80076; 80202; 80307; 81001; 82270; 82728; 83540; 83550; 83605; 83615; 83690; 83735; 84484; 85025; 85048; 85610; 85730; 86850; 86900; 86901; 87040; 87045; 87081; 87086; 87088; 87177; 87186; 87427; 87493; 93005; 96365; 96375; 99152; G0378; J1885; J2250; J2470; J2543; J2704; J3490; J7042; Q9967

== ENCOUNTER 2025-04-14 13:58 | Inpatient (IN) | payer MEDICAID ==
[~2025-04-14] VITALS: Ht 185.4 cm; Wt 99.4 kg
[~2025-04-14 13:58] MED LIST: AUG875T PO; HYDR-4798 PO
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
--- NOTE | 2025-04-14 14:59 | DVH ---
Indication: pain with draiin in GB Technique: CT axial images of the abdomen and pelvis are obtained without contrast. Coronal and sagit harmony reformats were obtained. Radiation Dose Information: CTDI volume is 21 mGy. Dose-length product is 1315 mGy*cm Comparison: XY KUB ABDOMEN SINGLE VIEW on DOS: 03/20/25, US LIVER on DOS: 03/13/25, CT CT AB PEL WO CON- NO ORAL OR IV on DOS: 03/12/25 FINDINGS: There is limited interpretation of the abdomen and pelvis without administration of intravenous contr ast. Lung bases demonstrate no pleural effusion. Adrenal glands unremarkable in shape. Spleen enlarged measuring 16.2 cm AP. Pancreas is unremarkable. Cholecystostomy tube. Gallbladder partially decompressed. Cholelithiasis with gallstone at the gal lbladder neck. Liver is unremarkable in shape. Right kidney demonstrates no hydronephrosis / nephrolithiasis. Left nephrostomy tube is retracted and now positioned within the left renal cortex.m nonobstructing left renal calculus measuring 8 mm. Mi ld left hydroureteronephrosis. Distal left ureteral obstructing calculi measuring 5 and 6 mm. Stomach is partially distended. Small bowel loops are normal in caliber. Large volume stool within the colon. No secondary signs for appendicitis. There is perianal region so ft tissue stranding and anal wall thickening Bladder partially distended. Bladder wall thickening. Presacral edema. There are destructive endpla te changes at L4-5 with surrounding soft tissue edema, stranding. There are associated small retroper itoneal/ paralumbar lymph nodes. Moderate bilateral sacroiliac degenerative joint disease. There is moderate to severe left and modera te right hip degenerative joint disease. IMPRESSION: Interval placement of cholecystostomy drain. Gallbladder is decompressed. The left nephrostomy tube has been retracted and is now within the left renal parenchymal (now within the renal collecting system). Recommend urology consultation. Mild left hydroureteronephrosis with distal left ureteral calculi measuring 5 mm, 6 mm. Destructive endplate changes at L4 and L5 with surrounding paravertebral soft tissue edema / strandin g most consistent with acute discitis osteomyelitis. Recommend MRI lumbar spine with and without con trast and infectious disease, neurosurgical consultation for further management. Splenomegaly. Presacral edema with anal region wall thickening and perianal soft tissue edema/stranding. Correlate for proctitis / proctocolitis and other etiologies. Other findings as described.
[2025-04-14 18:25] VITALS: PULSE 89; RESP 16; O2SAT 96
[2025-04-14] MEDS ORDERED: ACETAMINOPHEN 325 MG TAB PO PRN (19:30)
[2025-04-14] MEDS ORDERED: ONDANSETRON HCL 4 MG/2 ML VIAL IV PRN (19:30)
[2025-04-14 20:01] LABS: Urine Protein, UAD 1+ (Negative); Urine WBC Clumps PRESENT /hpf (None Seen)
[2025-04-14 20:16] LABS: Mean Corpuscular Hemoglobin 25.5 pg (28.0-32.0); Nucleated Red Blood Cells % 0.1 %
[2025-04-14 20:18] LABS: Hematocrit 34.9 % (41.0-53.0); Hemoglobin 11.4 g/dL (13.5-17.5); Mean Corpuscular Volume 78.1 fL (80.0-100.0)
[2025-04-14 20:26] LABS: Alanine Aminotransferase 12 U/L (7-40); Albumin 4.0 g/dL (3.2-4.8); Alkaline Phosphatase 82 U/L (46-116); Anion Gap 9 (5-15); BUN/Creatinine Ratio 17.6 (10.0-20.0); Bilirubin, Total 0.3 mg/dL (0.2-1.0); Blood Urea Nitrogen 12 mg/dL (9-23); Calcium 9.1 mg/dL (8.7-10.4); Carbon Dioxide 27 mmol/L (20-31); Chloride 103 mmol/L (98-107); Glucose 87 mg/dL (74-106); Potassium 3.8 mmol/L (3.5-5.1); Sodium 139 mmol/L (136-145); Total Protein 7.6 g/dL (5.7-8.2)
[2025-04-14] MEDS: HYDROcodone-ACET 5/325MG TAB PO PRN (22:34)
[2025-04-15] MEDS ORDERED: ONDANSETRON HCL 4 MG/2 ML VIAL IV PRN (04:30)
--- NOTE | 2025-04-15 04:36 | DVHHP2 ---
History of Present Illness Reason for Visit: Cholecystostomy tube removal History of Present Illness 39-year-old male presents for possible cholecystostomy tube removal. Patient was seen three weeks ago with acute cholecystitis. Patient had previous abdominal surgeries and was not a candidate due to high risk. A cholecystostomy tube was placed and advised to returned for removal in three weeks. He was also seen by Urology then who place and nephrostomy tube and was advised to follow up for possible lithotripsy and nephrostomy tube removal he now presents for eval uation. Denies any discomfort at the moment. Past Medical History Hypertension Past Surgical History Cholecystostomy and nephrostomy Family History Noncontributory Smoke: No ALCOHOL: none Drugs: None Lives: with Family Review of Systems Review of Systems Review of systems are currently negative otherwise addressed in HPI. Allergies: Coded Allergies: Clindamycin (Verified Allergy, Unknown, 03/12/25) Medications Current Medications Medications Dose Ordered Sig/Jina Route Start Time Stop Time Status Last Admin Dose Admin Lisinopril 20 mg DAILY PO 04/15/25 10:00 Acetaminophen/ Hydrocodone Bitart 1 tab Q4HP PRN PO 04/14/25 19:30 04/14/25 22:34 1 TAB Ondansetron HCl 4 mg Q4HP PRN IV 04/14/25 19:30 Acetaminophen 650 mg Q6HP PRN PO 04/14/25 19:30 Exam Vital Signs Vital Signs Date Time Temp Pulse Resp B/P (MAP) Pulse Ox O2 Delivery O2 Flow Rate FiO2 04/14/25 22:30 98.7 88 15 91/66 (74) 100 98.7 04/14/25 19:30 Room Air* 0 21 Exam Gen: 39-year-old male in no apparent distress Skin: Warm, dry, normal color and texture, no rash. HEENT: Normocephalic atraumatic, mucous membranes moist and pink. Neck: Cervical and supraclavicular nodes normal without enlargement, trachea is midline, thyroid gland is normal without masses. Pulmonary: Clear to auscultation and percussion bilaterally. Cardiac: Regular rate and rhythm. No murmur Abdomen: Soft, nontender, nondistended, bowel sounds present all 4 quadrants, no guarding, no rigidity, no organomegaly. Extremities: No cyanosis, clubbing, no edema Neuro: Cranial nerves II through XII grossly intact, normal affect and speech, no focal motor deficits. Labs/Xrays ORDERING PHYSICIAN: CRISTIN BOLAÑOS MD PROCEDURE(s): ABPL - CT AB PEL WO CON-NO ORAL OR IV REASON: pain with draiin in GB ORDER NUMBER(s): [id number], ACCESSION NUMBER(s): [id number] Indication: pain with draiin in GB Technique: CT axial images of the abdomen and pelvis are obtained without contrast. Coronal and sagittal reformats were obtained. Radiation Dose Information: CTDI volume is 21 mGy. Dose-length product is 1315 mGy*cm Comparison: XY KUB ABDOMEN SINGLE VIEW on DOS: 03/20/25, US LIVER on DOS: 03/13/25, CT CT AB PEL WO CON-NO ORAL OR IV on DOS: 03/12/25 FINDINGS: There is limited interpretation of the abdomen and pelvis without administration of intravenous contrast. Lung bases demonstrate no pleural effusion. Adrenal glands unremarkable in shape. Spleen enlarged measuring 16.2 cm AP. Pancreas is unremarkable. Cholecystostomy tube. Gallbladder partially decompressed. Cholelithiasis with gallstone at the gallbladder neck. Liver is unremarkable in shape. Right kidney demonstrates no hydronephrosis / nephrolithiasis. Left nephrostomy tube is retracted and now positioned within the left renal cortex.m nonobstructing left renal calculus measuring 8 mm. Mild left hydroureteronephrosis. Distal left ureteral obstructing calculi measuring 5 and 6 mm. Stomach is partially distended. Small bowel loops are normal in caliber. Large volume stool within the colon. No secondary signs for appendicitis. There is perianal region soft tissue stranding and anal wall thickening Bladder partially distended. Bladder wall thickening. Presacral edema. There are destructive endplate changes at L4-5 with surrounding soft tissue edema, stranding. There are associated small retroperitoneal/ paralumbar lymph nodes. Moderate bilateral sacroiliac degenerative joint disease. There is moderate to severe left and moderate right hip degenerative joint disease. IMPRESSION: Interval placement of cholecystostomy drain. Gallbladder is decompressed. The left nephrostomy tube has been retracted and is now within the left renal parenchymal (now within the renal collecting system). Recommend urology consultation. Mild left hydroureteronephrosis with distal left ureteral calculi measuring 5 mm, 6 mm. Destructive endplate changes at L4 and L5 with surrounding paravertebral soft tissue edema / stranding most consistent with acute discitis osteomyelitis. Recommend MRI lumbar spine with and without contrast and infectious disease, neurosurgical consultation for further management. Splenomegaly. Presacral edema with anal region wall thickening and perianal soft tissue edema/stranding. Correlate for proctitis / proctocolitis and other etiologies. Other findings as described. Labs Test 04/14/25 19:54 04/14/25 18:49 Range/Units White Blood Count 5.8 4.4-10.8 10^3/uL Red Blood Count 4.46 L 4.5-5.90 10^6/uL Hemoglobin 11.4 L 13.5-17.5 g/dL Hematocrit 34.9 L 41.0-53.0 % Mean Corpuscular Volume 78.1 L 80.0-100.0 fL Mean Corpuscular Hemoglobin 25.5 L 28.0-32.0 pg Mean Corpuscular Hemoglobin Concent 32.6 32.0-36.0 g/dL Red Cell Distribution Width 17.2 H 11.8-14.3 % Platelet Count 257 140-450 10^3/uL Mean Platelet Volume 7.7 6.9-10.8 fL Neutrophils (%) (Auto) 65.2 37.0-80.0 % Lymphocytes (%) (Auto) 21.6 10.0-50.0 % Monocytes (%) (Auto) 6.4 0.0-12.0 % Eosinophils (%) (Auto) 6.1 0.0-7.0 % Basophils (%) (Auto) 0.7 0.0-2.0 % Neutrophils # (Auto) 3.8 1.6-8.6 10 ^3/uL Lymphocytes # (Auto) 1.3 0.4-5.4 10 ^3/uL Monocytes # (Auto) 0.4 0-1.3 10 ^3/uL Eosinophils # (Auto) 0.4 0-0.8 10 ^3/uL Basophils # (Auto) 0 0-0.2 10 ^3/uL Nucleated Red Blood Cells 0.1 % Sodium Level 139 136-145 mmol/L Potassium Level 3.8 3.5-5.1 mmol/L Chloride Level 103 98-107 mmol/L Carbon Dioxide Level 27 20-31 mmol/L Anion Gap 9 5-15 Blood Urea Nitrogen 12 9-23 mg/dL Creatinine 0.68 L 0.700-1.30 mg/dL Glomerular Filtration Rate Calc 120 >90 mL/min BUN/Creatinine Ratio 17.6 10.0-20.0 Serum Glucose 87 74-106 mg/dL Calcium Level 9.1 8.7-10.4 mg/dL Total Bilirubin 0.3 0.2-1.0 mg/dL Aspartate Amino Transferase (AST) 23 13-40 U/L Alanine Aminotransferase (ALT) 12 7-40 U/L Alkaline Phosphatase 82 46-116 U/L Total Protein 7.6 5.7-8.2 g/dL Albumin 4.0 3.2-4.8 g/dL Urine Color Yellow Yellow Urine Clarity Turbid H Clear Urine pH 6.5 5.0-9.0 Urine Specific [place] 1.024 1.001-1.035 Urine Protein 1+ H Negative Urine Ketones Negative Negative Urine Blood Trace H Negative /uL Urine Nitrite 1+ H Negative Urine Bilirubin Negative Negative Urine Urobilinogen 2 H Negative mg/dL Urine Leukocyte Esterase 3+ Negative /uL Urine RBC 13 0 - 3 /hpf Urine WBC Clumps Present None Seen /hpf Urine Microscopic WBC 353 H 0-3 /HPF Urine Squamous Epithelial Cells Few <5 /hpf Urine Bacteria Few H None Seen /hpf Urine Mucus Few None Seen Urine Glucose Normal Normal mg/dL SEPSIS Sepsis Screen Date sepsis recognized/suspect: Apr 14, 2025 Time Sepsis recognized/suspect: 1929 Recent Procedure: Yes On Antibiotic Therapy: No Respiratory Rate >20: No Heart Rate >90: No Temp<36 C (96.8 F) or >38.3 C: No SBP <90 or MAP <65 mmHG: No New Acute Mental Status Change: No Is the patient on CPAP, BIPAP,: No Vital Signs Date Time Temp Pulse Resp B/P (MAP) Pulse Ox O2 Delivery O2 Flow Rate FiO2 04/14/25 22:30 98.7 88 15 91/66 (74) 100 98.7 Laboratory Tests Test 04/14/25 19:54 White Blood Count 5.8 10^3/uL (4.4-10.8) Medications Medications Dose Ordered Sig/Jina Route Start Time Stop Time Status Last Admin Dose Admin Acetaminophen/ Hydrocodone Bitart 1 tab Q4HP PRN PO 04/14/25 19:30 04/14/25 22:34 1 TAB Assessment/Plan Assessment/Plan Assessment Cholelithiasis Status post cholecystostomy Status post nephrostomy tube Left hydronephrosis UTI Plan Admit the patient to [facility] to the hospitalist Radiology consult Nephrology consultation Rocephin Continue treatment per orders. Plan discussed with: Patient My Orders Orders - YUMIKO DIAZ Procedure Category Date Status Time Lisinopril Tablet PHA 04/15/25 In Process (Zestril Tablet) 10:00 Admit ADMIT 04/14/25 Transmitted 19:20 Hydrocodone-Acet PHA 04/14/25 In Process 5/325mg Tab ([place] 19:30 Ondansetron Hcl PHA 04/14/25 In Process (Zofran) 19:30 Cardiac DIET 04/15/25 Transmitted Diet-2gna,Lofat,Lochol Breakfast Condition: Stable NAYANA 04/14/25 In Process 19:20 Acetaminophen Tablet PHA 04/14/25 In Process (Tylenol Tablet) 19:30 Bedrest With Bathroom NAYANA 04/14/25 In Process Privileg 19:20 Date of Service: Apr 14, 2025 Billing Provider: YUMIKO DIAZ Common Visit Codes: 04101-[id number] INP/OBS CARE (MOD) YUMIKO DIAZ Apr 15, 2025 04:36
[2025-04-15] MEDS ORDERED: MORPHINE SULFATE INJ 2 MG/ml SYRG IV PRN (04:45)
[2025-04-15 07:30] VITALS: PULSE 87; RESP 12; O2SAT 97
[2025-04-15 08:07] LABS: Chloride 104 mmol/L (98-107); Potassium 3.9 mmol/L (3.5-5.1); Sodium 139 mmol/L (136-145)
[2025-04-15 08:08] LABS: Anion Gap 9 (5-15); Calcium 9.2 mg/dL (8.7-10.4); Carbon Dioxide 26 mmol/L (20-31)
[2025-04-15 08:13] LABS: BUN/Creatinine Ratio 15.4 (10.0-20.0); Blood Urea Nitrogen 10 mg/dL (9-23); Glucose 94 mg/dL (74-106)
[2025-04-15] MEDS: ACETAMINOPHEN 325 MG TAB PO SCH (08:15)
[2025-04-15] MEDS: cefTRIAXone 1GM/50ML D5W 50 ML IV SCH (09:00)
[2025-04-15] MEDS: LISINOPRIL 20 MG TAB PO SCH (10:00)
[2025-04-15] MEDS ORDERED: HYDROcodone-ACET 5/325MG TAB PO PRN (14:00)
[2025-04-15] MEDS: HYDROcodone-ACET 5/325MG TAB PO PRN ×2 (15:15→21:45)
[2025-04-15 17:10] VITALS: BP 130/77; PULSE 64; RESP 13; O2SAT 98
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
[2025-04-15 20:00] VITALS: PULSE 89; RESP 20; O2SAT 99
[2025-04-15 21:12] LABS: Hemoglobin 9.6 g/dL (13.5-17.5); Nucleated Red Blood Cells % 0.1 %
[2025-04-15 21:14] LABS: Hematocrit 29.8 % (41.0-53.0); Mean Corpuscular Hemoglobin 25.4 pg (28.0-32.0); Mean Corpuscular Volume 79.0 fL (80.0-100.0)
[2025-04-15 21:26] LABS: Albumin 3.4 g/dL (3.2-4.8); Alkaline Phosphatase 65 U/L (46-116); Anion Gap 7 (5-15); BUN/Creatinine Ratio 17.2 (10.0-20.0); Blood Urea Nitrogen 10 mg/dL (9-23); Carbon Dioxide 26 mmol/L (20-31); Potassium 3.5 mmol/L (3.5-5.1); Sodium 143 mmol/L (136-145); Total Protein 6.5 g/dL (5.7-8.2)
[2025-04-15] MEDS: ENOXAPARIN SOD 40 MG/0.4 ML SYRINGE SC ONE (21:40)
[2025-04-15 21:57] LABS: Alanine Aminotransferase 9 U/L (7-40); Bilirubin, Total 0.2 mg/dL (0.2-1.0); Calcium 8.2 mg/dL (8.7-10.4); Chloride 110 mmol/L (98-107); Glucose 73 mg/dL (74-106)
[2025-04-16] VITALS (8 sets, daily range): BP systolic 121–175; BP diastolic 58–96; PULSE 61–90; RESP 17–20; TEMP 97.3–98.1; O2SAT 96–100
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
[2025-04-16] MEDS: ENOXAPARIN SOD 40 MG/0.4 ML SYRINGE SC SCH (09:55)
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
--- NOTE | 2025-04-16 21:24 | DVHPN2 ---
Progress Note - Dictate Date Seen: Apr 16, 2025 Medical Necessity Reason Pt with a Central, PICC or Fol: Yes The following are medically ne: Zhang Catheter Reason for zhang catheter: Bladder Retention/Obstruc Subjective Patient seen for evaluation of left PNT exchange. Aware procedure delayed d/t emergent case. Understands exchange is planned for Saturday, when IR resumes. vital signs Vital Sign Date Time Temp Pulse Resp B/P (MAP) Pulse Ox O2 Delivery O2 Flow Rate FiO2 04/16/25 17:00 97.3 68 17 175/96 (122) 99 97.3 04/16/25 08:00 Room Air* 0 21 Total Intake and Output 04/15/25 04/15/25 04/16/25 15:00 23:00 07:00 Output Total 1400 ml Balance -1400 ml medications Current Medications Medications Dose Ordered Sig/Jina Route Start Time Stop Time Status Last Admin Dose Admin Lisinopril 20 mg DAILY PO 04/15/25 10:00 04/16/25 09:56 20 MG Ceftriaxone Sodium 50 ml @ 100 mls/hr DAILY@09 IV 04/15/25 09:00 04/16/25 09:55 100 MLS/HR Ondansetron HCl 4 mg Q4HP PRN IV 04/15/25 04:30 Acetaminophen 650 mg Q6HR PO 04/15/25 08:15 04/16/25 07:07 650 MG Acetaminophen/ Hydrocodone Bitart 1 tab Q6HPRN PRN PO 04/15/25 13:00 04/15/25 15:15 1 TAB Acetaminophen/ Hydrocodone Bitart 1 tab Q8HPRN PRN PO 04/15/25 14:00 04/16/25 16:52 1 TAB Enoxaparin Sodium 40 mg DAILY SC 04/16/25 10:00 04/16/25 09:55 40 MG objective Right PNT in place. Site clean, dry, intact. No drainage bag attached; tube not currently draining . No erythema, leakage, tenderness, or pain reported, laboratory and microbiology Laboratory Tests 04/15/25 20:55 Test 04/15/25 20:55 Range/Units Serum Glucose 73 L 74-106 mg/dL [facility] [address] [facility] [address] Ph: [phone] DIAGNOSTIC IMAGING Diagnostic Imaging Report : [id number] Signed PATIENT: BLUE KOCH ACCT: [id number] UNIT: [id number] : 1985 LOC: ER ROOM / BED: / AGE / SEX: 39 / M ADM STATUS: REG ER SERVICE 1407 ORDERING PHYSICIAN: CRISTIN BOLAÑOS MD PROCEDURE(s): ABPL - CT AB PEL WO CON-NO ORAL OR IV REASON: pain with draiin in GB ORDER NUMBER(s): [id number], ACCESSION NUMBER(s): [id number] Indication: pain with draiin in GB Technique: CT axial images of the abdomen and pelvis are obtained without contrast. Coronal and sagittal reformats were obtained. Radiation Dose Information: CTDI volume is 21 mGy. Dose-length product is 1315 mGy*cm Comparison: XY KUB ABDOMEN SINGLE VIEW on DOS: 03/20/25, US LIVER on DOS: 03/13/25, CT CT AB PEL WO CON-NO ORAL OR IV on DOS: 03/12/25 FINDINGS: There is limited interpretation of the abdomen and pelvis without administration of intravenous contrast. Lung bases demonstrate no pleural effusion. Adrenal glands unremarkable in shape. Spleen enlarged measuring 16.2 cm AP. Pancreas is unremarkable. Cholecystostomy tube. Gallbladder partially decompressed. Cholelithiasis with gallstone at the gallbladder neck. Liver is unremarkable in shape. Right kidney demonstrates no hydronephrosis / nephrolithiasis. Left nephrostomy tube is retracted and now positioned within the left renal cortex.m nonobstructing left renal calculus measuring 8 mm. Mild left hydroureteronephrosis. Distal left ureteral obstructing calculi measuring 5 and 6 mm. Stomach is partially distended. Small bowel loops are normal in caliber. Large volume stool within the colon. No secondary signs for appendicitis. There is perianal region soft tissue stranding and anal wall thickening Bladder partially distended. Bladder wall thickening. Presacral edema. There are destructive endplate changes at L4-5 with surrounding soft tissue edema, stranding. There are associated small retroperitoneal/ paralumbar lymph nodes. Moderate bilateral sacroiliac degenerative joint disease. There is moderate to severe left and moderate right hip degenerative joint disease. IMPRESSION: Interval placement of cholecystostomy drain. Gallbladder is decompressed. The left nephrostomy tube has been retracted and is now within the left renal parenchymal (now within the renal collecting system). Recommend urology consultation. Mild left hydroureteronephrosis with distal left ureteral calculi measuring 5 mm, 6 mm. Destructive endplate changes at L4 and L5 with surrounding paravertebral soft tissue edema / stranding most consistent with acute discitis osteomyelitis. Recommend MRI lumbar spine with and without contrast and infectious disease, neurosurgical consultation for further management. Splenomegaly. Presacral edema with anal region wall thickening and perianal soft tissue edema/stranding. Correlate for proctitis / proctocolitis and other etiologies. Other findings as described. Assessment/Plan Assessment Left renal stones Left PNT displaced Plan/Recommendation Replacement of left PNT Saturday Left ESWL scheduled for 05/17/25 as outpatient Problems(with codes): (1) Left renal stone (2) Nephrostomy tube displaced Plan discussed with: Patient LILLIAN SALAS H[employer] C[employer]TER Apr 16, 2025 21:24 CARRIE RODRIGUES H[employer] Apr 17, 2025 11:53
[2025-04-17 01:00] VITALS: BP_SYST 111; BP_SYST 91; BP_DIAS 55; BP_DIAS 62; PULSE 78; PULSE 91; RESP 20; TEMP 97.1; O2SAT 95; O2SAT 98
[2025-04-17 09:00] VITALS: BP 137/100; PULSE 59; RESP 16; TEMP 98.2; O2SAT 99
[2025-04-17 09:49] LABS: Hemoglobin 12.1 g/dL (13.5-17.5); Mean Corpuscular Hemoglobin 25.5 pg (28.0-32.0); Nucleated Red Blood Cells % 0.0 %
[2025-04-17 09:50] LABS: Hematocrit 37.6 % (41.0-53.0); Mean Corpuscular Volume 79.3 fL (80.0-100.0)
[2025-04-17 10:11] LABS: Anion Gap 12 (5-15); Calcium 9.3 mg/dL (8.7-10.4); Carbon Dioxide 24 mmol/L (20-31)
[2025-04-17 10:16] LABS: BUN/Creatinine Ratio 11.9 (10.0-20.0)
[2025-04-17 10:17] LABS: Blood Urea Nitrogen 8 mg/dL (9-23); Chloride 106 mmol/L (98-107); Glucose 120 mg/dL (74-106); Potassium 3.5 mmol/L (3.5-5.1); Sodium 142 mmol/L (136-145)
[2025-04-17 13:00] VITALS: BP 135/70; PULSE 64; RESP 17; TEMP 97.8; O2SAT 100
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
[2025-04-17 17:00] VITALS: BP 132/84; PULSE 65; RESP 18; TEMP 98.1; O2SAT 99
[2025-04-17 20:00] VITALS: PULSE 89; RESP 18
[2025-04-17 21:00] VITALS: BP 78/42; PULSE 89; RESP 17; TEMP 98.6; O2SAT 98
[2025-04-18] VITALS (8 sets, daily range): BP systolic 104–149; BP diastolic 65–106; PULSE 66–91; RESP 16–18; TEMP 97.4–98.2; O2SAT 95–100
[2025-04-18] MEDS: Ensure HIGH Protein Chocolate 8oz Bottle PO SCH (08:30)
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
--- NOTE | 2025-04-18 18:10 | DVHINCON2 ---
Date of service: Apr 18, 2025 Family History: Diabetes mellitus G8 MOTHER Hypercholesterolemia G8 MOTHER G8 FATHER Hypertension Allergies: Coded Allergies: Clindamycin (Verified Allergy, Unknown, 03/12/25) Home Meds Active Scripts Hydrocodone-Acetaminophen (Hydrocodone Bitartrate/AC 10-325 mg) 1 Tab Tab, 1 TAB PO QIDP PRN for 7 Days, #28 TAB 0 Refills Prov:ARISTEO MENESES MD 03/21/25 Amoxicillin & Pot Clavulanate (AUGMENTIN TABLET) 875 Mg Tb, 875 MG PO BID for 14 Days, #28 TAB Prov:MARYBETH PARIKH 03/21/25 Current Medications Current Medications Medications (Trade) Dose Ordered Sig/Jina Route PRN Reason Start Time Stop Time Status Last Admin Enteral Nutritional Formula (Ensure High Protein) 240 ml BIDWM PO 04/18/25 08:30 Vital Signs Vital Signs Date Time Temp Pulse Resp B/P (MAP) Pulse Ox O2 Delivery O2 Flow Rate FiO2 04/18/25 17:00 97.6 69 18 149/106 (120) 98 97.6 04/18/25 08:08 Room Air* 0 21 Labs/Diagnostic Data Labs Test 04/17/25 09:35 04/15/25 20:55 04/14/25 18:49 Range/Units White Blood Count 5.8 # 4.4-10.8 10^3/uL Red Blood Count 4.74 4.5-5.90 10^6/uL Hemoglobin 12.1 #L 13.5-17.5 g/dL Hematocrit 37.6 #L 41.0-53.0 % Mean Corpuscular Volume 79.3 L 80.0-100.0 fL Mean Corpuscular Hemoglobin 25.5 L 28.0-32.0 pg Mean Corpuscular Hemoglobin Concent 32.1 32.0-36.0 g/dL Red Cell Distribution Width 16.9 H 11.8-14.3 % Platelet Count 234 140-450 10^3/uL Mean Platelet Volume 7.5 6.9-10.8 fL Neutrophils (%) (Auto) 74.6 37.0-80.0 % Lymphocytes (%) (Auto) 18.1 10.0-50.0 % Monocytes (%) (Auto) 3.3 0.0-12.0 % Eosinophils (%) (Auto) 3.5 0.0-7.0 % Basophils (%) (Auto) 0.5 0.0-2.0 % Neutrophils # (Auto) 4.3 1.6-8.6 10 ^3/uL Lymphocytes # (Auto) 1.0 0.4-5.4 10 ^3/uL Monocytes # (Auto) 0.2 0-1.3 10 ^3/uL Eosinophils # (Auto) 0.2 0-0.8 10 ^3/uL Basophils # (Auto) 0 0-0.2 10 ^3/uL Nucleated Red Blood Cells 0.0 % Sodium Level 142 136-145 mmol/L Potassium Level 3.5 3.5-5.1 mmol/L Chloride Level 106 98-107 mmol/L Carbon Dioxide Level 24 20-31 mmol/L Anion Gap 12 5-15 Blood Urea Nitrogen 8 L 9-23 mg/dL Creatinine 0.67 L 0.700-1.30 mg/dL Glomerular Filtration Rate Calc 120 >90 mL/min BUN/Creatinine Ratio 11.9 10.0-20.0 Serum Glucose 120 H 74-106 mg/dL Calcium Level 9.3 8.7-10.4 mg/dL Total Bilirubin 0.2 0.2-1.0 mg/dL Aspartate Amino Transferase (AST) 21 13-40 U/L Alanine Aminotransferase (ALT) 9 7-40 U/L Alkaline Phosphatase 65 46-116 U/L Total Protein 6.5 5.7-8.2 g/dL Albumin 3.4 3.2-4.8 g/dL Urine Color Yellow Yellow Urine Clarity Turbid H Clear Urine pH 6.5 5.0-9.0 Urine Specific [place] 1.024 1.001-1.035 Urine Protein 1+ H Negative Urine Ketones Negative Negative Urine Blood Trace H Negative /uL Urine Nitrite 1+ H Negative Urine Bilirubin Negative Negative Urine Urobilinogen 2 H Negative mg/dL Urine Leukocyte Esterase 3+ Negative /uL Urine RBC 13 0 - 3 /hpf Urine WBC Clumps Present None Seen /hpf Urine Microscopic WBC 353 H 0-3 /HPF Urine Squamous Epithelial Cells Few <5 /hpf Urine Bacteria Few H None Seen /hpf Urine Mucus Few None Seen Urine Glucose Normal Normal mg/dL Microbiology Date/Time Source Procedure Growth Status 04/16/25 14:45 Sacrum Gram Stain - Final Resulted 04/16/25 14:45 Wound Culture - Preliminary Escherichia coli Proteus mirabilis Resulted 04/16/25 10:49 Blood Blood Culture - Preliminary NO GROWTH AFTER 48 HOURS OF INCUBATION. Resulted Assessment [id number] AFEBRILE VSS S/P IR CHOLECYSTOSTOMY L NEPHROSTOMY EVAL ONGOING CONSIDER EMERGENT/ELECTIVE GB SURGERY BASED ON ONGOING EVAL Plan discussed with: Other ANISH ADHIKARI MD Apr 18, 2025 18:10
--- NOTE | 2025-04-18 19:38 | DVHINCON2 ---
DATE OF CONSULTATION: 04/18/2025 HISTORY OF PRESENT ILLNESS: The patient is a 39-year-old, coming in with some abdominal pain and also wants to consider his gallbladder removal. He had been originally admitted, came in with acute cholecystitis. He was high risk for surgery and underwent an IR cholecystostomy and he also found that he has some urinary issues and Urology was evaluating him as well. So, at this point, his abdominal pain is not significant. No nausea or vomiting. No constipation or diarrhea. No hematemesis or melena. No bleeding per rectum. PAST MEDICAL HISTORY: Hypertension. PAST SURGICAL HISTORY: Cholecystostomy and nephrostomy. Urology is evaluating for replacement of the nephrostomy and he also is quadriplegic and also refer to his previous records regarding those issues. CLINICAL IMPRESSION: Status post IR-placed cholecystostomy and a left-sided nephrostomy tube that needs to be addressed by Urology. PLAN: The plan will be to allow the ongoing Urology evaluation. After that, the need for gallbladder surgery can be determined based upon ongoing evaluation. MD MAURICE Ulloa/COREY TID: [id number] RECEIPT: [id number] cc: Alfred Strauss NP
[2025-04-19] VITALS (13 sets, daily range): BP systolic 74–132; BP diastolic 49–83; PULSE 56–101; RESP 11–20; TEMP 97.1–98.4; O2SAT 96–100
[2025-04-19 06:57] LABS: Anion Gap 12 (5-15); Carbon Dioxide 25 mmol/L (20-31); Chloride 106 mmol/L (98-107); INR 0.98 (0.9-1.15); Partial Thromboplastin Time 22.3 SEC (24.5-34.5); Prothrombin Time 10.4 sec (9.3-11.8); Sodium 143 mmol/L (136-145)
[2025-04-19 06:59] LABS: Calcium 9.0 mg/dL (8.7-10.4)
[2025-04-19 07:03] LABS: BUN/Creatinine Ratio 19.6 (10.0-20.0); Blood Urea Nitrogen 11 mg/dL (9-23); Glucose 84 mg/dL (74-106)
[2025-04-19 07:06] LABS: Potassium 3.5 mmol/L (3.5-5.1)
[2025-04-19 10:31] LABS: Hematocrit 31.3 % (41.0-53.0); Hemoglobin 10.5 g/dL (13.5-17.5); Mean Corpuscular Hemoglobin 25.6 pg (28.0-32.0); Mean Corpuscular Volume 76.7 fL (80.0-100.0); Nucleated Red Blood Cells % 0.1 %
[2025-04-19] MEDS: LIDOCAINE 2%HCL (LOCAL ANESTH.) INJ 20ML MDV ONE (11:45)
[2025-04-19] MEDS: IODIXANOL 320MG/ML 100ML BTL IV ONE (11:50)
[2025-04-19] MEDS: fentaNYL CITRATE 100 MCG/2 ML VL ONE (12:14)
[2025-04-19] MEDS: MIDAZOLAM HCL 2MG/2ML 2ml VIAL (1mg/ml) ONE (12:15)
[2025-04-19] MEDS: SODIUM CHLORIDE 0.9% 500 ML IV ONE (13:10)
--- NOTE | 2025-04-19 15:17 | DVH ---
XY PERCUTANEOUS NEPHROSTOMY, HISTORY: NEPH TUBE EXCHANGE PROCEDURE: Informed consent was obtained. The patient was placed on the fluoroscopic table in a prone position and IV sedation administered. The left flank was prepped with chlorhexidine which was allow ed to dry and draped in the usual sterile fashion. Time out was performed and the soft tissues infilt rated with 1% lidocaine local anesthetic. An antegrade nephrostogram was performed to confirm positio n of the previous nephrostomy tube. The tube was cut and a glidewire was inserted through the nephro stomy tube into the ureter. The prior nephrostomy tube was removed, and a new 8 Fr multipurpose drain age catheter was advanced into the renal pelvis over a wire. Completion antegrade nephrostogram demon strates appropriate position of the new nephrostomy tube in the renal pelvis. The catheter was secure d in place and connected to gravity drainage. A sterile dressing was applied. No immediate complicati on was identified. Air Kerma 11 mGy FLUOROSCOPY TIME: 1.5 minutes. CONTRAST USED: 15 mL. SEDATION: Dr. Tiffany Saunders was personally responsible for the administration of moderate sedation during the procedure performed, including the use of an independent trained observer who had no other duties during the procedure. The drugs utilized were IV fentanyl and versed (see nursing log for details). The total time of supervision by the attending physician was approximately 30 minutes. FINDINGS: Nephrostomy tube within pigtail coiled in the left renal pelvis. IMPRESSION: Exchange of a left sided nephrostomy tube, with placement of a new 8 fr multipurpose drainage cathete r in the left sided renal pelvis. PLAN: Routine catheter exchanges in 3 months..
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
--- NOTE | 2025-04-19 22:09 | DVHPN2 ---
Progress Note Date Seen: Apr 19, 2025 Medical Necessity Reason Pt with a Central, PICC or Fol: Yes The following are medically ne: Zhang Catheter Reason for zhang catheter: Bladder Retention/Obstruc Objective vital signs Vital Sign Date Time Temp Pulse Resp B/P (MAP) Pulse Ox O2 Delivery O2 Flow Rate FiO2 04/19/25 17:00 97.1 73 19 107/69 (82) 98 97.1 04/19/25 08:00 Room Air* 0 21 Total Intake and Output 04/18/25 04/18/25 04/19/25 15:00 23:00 07:00 Intake Total 50 ml 650 ml 450 ml Output Total 415 ml 650 ml Balance 50 ml 235 ml -200 ml medications Current Medications Medications Dose Ordered Sig/Jina Route Start Time Stop Time Status Last Admin Dose Admin Lisinopril 20 mg DAILY PO 04/15/25 10:00 04/18/25 09:21 20 MG Ceftriaxone Sodium 50 ml @ 100 mls/hr DAILY@09 IV 04/15/25 09:00 04/18/25 09:19 100 MLS/HR Ondansetron HCl 4 mg Q4HP PRN IV 04/15/25 04:30 Acetaminophen 650 mg Q6HR PO 04/15/25 08:15 04/16/25 07:07 650 MG Acetaminophen/ Hydrocodone Bitart 1 tab Q6HPRN PRN PO 04/15/25 13:00 04/19/25 20:52 1 TAB Acetaminophen/ Hydrocodone Bitart 1 tab Q8HPRN PRN PO 04/15/25 14:00 04/19/25 15:05 1 TAB Enoxaparin Sodium 40 mg DAILY SC 04/16/25 10:00 04/18/25 09:20 40 MG Enteral Nutritional Formula 240 ml BIDWM PO 04/18/25 08:30 04/19/25 17:31 240 ML laboratory and microbiology Laboratory Tests 04/19/25 10:06 04/19/25 06:00 Test 04/19/25 06:00 Range/Units Serum Glucose 84 74-106 mg/dL Microbiology Date/Time Source Procedure Growth Status 04/16/25 14:45 Sacrum Gram Stain - Final Resulted 04/16/25 14:45 Wound Culture - Preliminary Escherichia coli Proteus mirabilis Resulted 04/16/25 10:49 Blood Blood Culture - Preliminary NO GROWTH AFTER 72 HOURS OF INCUBATION. Resulted Problem List/Assessment/Plan Problem List/Assessment/Plan AFEBRILE VSS ABD SOFT CHOLECYSTOSTOMY TUBE IN PLACE DRAINING 50 CC LIGHT BILE L NEPHROSTOMY EVAL ONGOING CONSIDER EMERGENT/ELECTIVE GB SURGERY INDICATED Plan discussed with: Patient Dietary Evaluation Review Recommendations by RD: Protein Supplementation Comments: 1) Initiate Ensure High Protein bid 2) Initiate Avni @ 1 pk bid 3) Initiate vitamin C @ 500 mg bid and zinc sulfate @ 220 mg qd 4) Encourage optimal PO intake 5) Follow-up with gastroenterology, urology, and nephrology 6) Continue to monitor I&O, labs, and skin integrity Expected Outcomes/Goals: 1) appetite and labs to improve 2) wounds to improve 3) gradual wt loss 4) f/u in 3-5 days ANISH ADHIKARI MD Apr 19, 2025 22:09
[2025-04-20] VITALS (7 sets, daily range): BP systolic 91–134; BP diastolic 62–87; PULSE 61–91; RESP 18–20; TEMP 97–98.4; O2SAT 97–100
--- NOTE | 2025-04-20 14:44 | DVHPN2 ---
Progress Note Date Seen: Apr 20, 2025 Medical Necessity Reason Pt with a Central, PICC or Fol: Yes The following are medically ne: Zhang Catheter Reason for zhang catheter: Bladder Retention/Obstruc Objective vital signs Vital Sign Date Time Temp Pulse Resp B/P (MAP) Pulse Ox O2 Delivery O2 Flow Rate FiO2 04/20/25 13:00 97.9 70 20 91/62 (72) 98 97.9 04/20/25 08:15 Room Air* 0 21 Total Intake and Output 04/19/25 04/19/25 04/20/25 15:00 23:00 07:00 Intake Total 500 ml 240 ml 300 ml Output Total 350 ml 550 ml Balance 500 ml -110 ml -250 ml medications Current Medications Medications Dose Ordered Sig/Jina Route Start Time Stop Time Status Last Admin Dose Admin Lisinopril 20 mg DAILY PO 04/15/25 10:00 04/18/25 09:21 20 MG Ceftriaxone Sodium 50 ml @ 100 mls/hr DAILY@09 IV 04/15/25 09:00 04/20/25 09:13 100 MLS/HR Ondansetron HCl 4 mg Q4HP PRN IV 04/15/25 04:30 Acetaminophen 650 mg Q6HR PO 04/15/25 08:15 04/16/25 07:07 650 MG Acetaminophen/ Hydrocodone Bitart 1 tab Q6HPRN PRN PO 04/15/25 13:00 04/20/25 09:16 1 TAB Acetaminophen/ Hydrocodone Bitart 1 tab Q8HPRN PRN PO 04/15/25 14:00 04/20/25 04:18 1 TAB Enoxaparin Sodium 40 mg DAILY SC 04/16/25 10:00 04/20/25 09:13 40 MG Enteral Nutritional Formula 240 ml BIDWM PO 04/18/25 08:30 04/20/25 08:00 240 ML laboratory and microbiology Laboratory Tests 04/19/25 10:06 04/19/25 06:00 Test 04/19/25 06:00 Range/Units Serum Glucose 84 74-106 mg/dL Microbiology Date/Time Source Procedure Growth Status 04/16/25 14:45 Sacrum Gram Stain - Final Resulted 04/16/25 14:45 Wound Culture - Preliminary Escherichia coli Proteus mirabilis Resulted 04/16/25 10:49 Blood Blood Culture - Preliminary NO GROWTH AFTER 72 HOURS OF INCUBATION. Resulted Problem List/Assessment/Plan Problem List/Assessment/Plan AFEBRILE VSS ABD SOFT CHOLECYSTOSTOMY TUBE IN PLACE DRAINING 50 CC LIGHT BILE CLAMP CHOLECYSTOSTOMY TUBE US RUQ CONSIDER EMERGENT/ELECTIVE GB SURGERY INDICATED Plan discussed with: Patient Dietary Evaluation Review Recommendations by RD: Protein Supplementation Comments: 1) Initiate Ensure High Protein bid 2) Initiate Avni @ 1 pk bid 3) Initiate vitamin C @ 500 mg bid and zinc sulfate @ 220 mg qd 4) Encourage optimal PO intake 5) Follow-up with gastroenterology, urology, and nephrology 6) Continue to monitor I&O, labs, and skin integrity Expected Outcomes/Goals: 1) appetite and labs to improve 2) wounds to improve 3) gradual wt loss 4) f/u in 3-5 days ANISH ADHIKARI MD Apr 20, 2025 14:44
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
--- NOTE | 2025-04-20 18:23 | DVH ---
ULTRASOUND ABDOMEN, LIMITED RIGHT UPPER QUADRANT: REASON FOR EXAM: rule out hepatobiliary obstruction TECHNIQUE: Real-time sector scans in the transverse and longitudinal planes were obtained through th e right upper quadrant of the abdomen. FINDINGS: The study was difficult due to the inability of the patient to move as well as a bandage co vering much of the right upper quadrant. The liver is enlarged at 19.0 cm in length. The liver is diffusely echogenic. There is hepatopetal flow in the portal vein. There is no intrahepatic nor extrahepatic biliary ductal dilatation. The c ommon bile duct measures 4 mm. There is a cholecystostomy tube. Multiple echogenic stones are mobile within the gallbladder. There is no gallbladder wall thickening nor pericholecystic fluid. There is no sonographic Kim's sign. The pancreas is obscured by bowel gas. The right kidney measures 10.4 cm. No hydronephrosis or nephrolithiasis is identified. There is no evidence of right renal mass or cyst. The visualized portions of the abdominal aorta demonstrate no evidence of aneurysmal dilatation. The visualized inferior vena cava is unremarkable. There is no free fluid identified in the right upper quadrant. IMPRESSION: Multiple shadowing stones in the gallbladder. There is a cholecystostomy tube identified within the g allbladder. The common bile duct is not dilated. Hepatomegaly. The liver is diffusely echogenic which may be secondary to steatosis or another diffuse hepatic process. Correlate clinically and with liver function tests.
[2025-04-21] VITALS (8 sets, daily range): BP systolic 121–148; BP diastolic 68–104; PULSE 68–97; RESP 18–20; TEMP 98–98.6; O2SAT 96–100
[2025-04-21 10:44] LABS: Hematocrit 36.5 % (41.0-53.0); Hemoglobin 11.9 g/dL (13.5-17.5); Mean Corpuscular Hemoglobin 25.6 pg (28.0-32.0); Mean Corpuscular Volume 78.9 fL (80.0-100.0); Nucleated Red Blood Cells % 0.1 %
[2025-04-21 10:54] LABS: Alanine Aminotransferase 12 U/L (7-40); Albumin 3.7 g/dL (3.2-4.8); Alkaline Phosphatase 76 U/L (46-116); Anion Gap 10 (5-15); BUN/Creatinine Ratio 19.7 (10.0-20.0); Blood Urea Nitrogen 13 mg/dL (9-23); Calcium 8.9 mg/dL (8.7-10.4); Carbon Dioxide 26 mmol/L (20-31); Glucose 91 mg/dL (74-106); Potassium 4.1 mmol/L (3.5-5.1); Sodium 143 mmol/L (136-145); Total Protein 6.8 g/dL (5.7-8.2)
[2025-04-21 10:57] LABS: Bilirubin, Total 0.2 mg/dL (0.2-1.0); Chloride 107 mmol/L (98-107)
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
--- NOTE | 2025-04-21 16:27 | DVH ---
COMPUTERIZED TOMOGRAPHY ABDOMEN AND PELVIS WITHOUT CONTRAST REASON FOR EXAM: Rule out hepatobiliary obstruction, collection or tissue cx COMPARISON: CT CT AB PEL WO CON-NO ORAL OR IV on DOS: 04/14/25, XY KUB ABDOMEN SINGLE VIEW on DOS: 03/20, CT CT AB PEL WO CON-NO ORAL OR IV on DOS: 03/12/25 TECHNIQUE: Spiral scans were acquired from the diaphragm to the symphysis pubis without intravenous c ontrast administration. 2-D coronal and sagittal reformatted images were provided. Radiation optimiza tion: All CT scans at this facility use at least one of these dose optimization techniques: Automated exposure control mA and/or kV adjustment per patient size (includes targeted exams where dose is mat ched to clinical indication) or iterative reconstruction. RADIATION DOSE: CTDI: 17.84 mGy DLP: 1135.26 mGy-cm FINDINGS: There is a 4 mm nodule in the posterior superior right lower lobe that is unchanged from 03/12/2025. There is minimal dependent atelectasis in bilateral lower lobes of the lungs. There is no pleural eff usion. There is no pericardial effusion. The liver is enlarged at 19.5 cm in length. The spleen is enlarged at 16.4 cm in length. There is a t ranshepatic percutaneous cholecystostomy tube with the pigtail formed in the gallbladder fundus. Ther e is an approximately 1.6 cm calcified gallstone in the gallbladder fundus. There is no pericholecys tic edema. Evaluation of the abdominal organs is suboptimal in the absence of intravenous contrast. Unenhanced appearance of the pancreas is unremarkable. The adrenal glands are normal. The kidneys ar e similar in size. There is a left percutaneous nephrostomy tube. There is mild nonspecific left jennifer nephric stranding. There are several calculi in the left kidney measuring up to 5 mm . No right amari l calculus is identified. There is no hydronephrosis of either kidney. There is a 3 mm calculus in th e dependent bladder. There are multiple calculi in the distal left ureter measuring up to 5 mm. The urinary bladder is decompressed about a Hope catheter balloon. The prostate and seminal vesicles ar e within normal limits. The colonic stool burden is moderate. The appendix is not seen. There is no d istention of the small bowel. There is no pneumoperitoneum. There is trace air in the anterior abdomi nal wall, likely secondary to subcutaneous administration of medications. No free fluid is identified in the abdomen or pelvis. No pathologic lymphadenopathy is identified by size criteria. There is selin ateral L5 pars defects. There are degenerative changes throughout the visualized spine. There is sev ere destructive change of the endplates on either for of the L4-L5 disc space with surrounding soft t issue inflammatory change. The spinal canal appears congenitally small. IMPRESSION: Well-positioned transhepatic cholecystostomy tube. No pericholecystic edema. Well-positioned left percutaneous nephrostomy tube. No hydronephrosis. Multiple distal left ureteral calculi and left renal calculi. 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 This appears similar to the prior study. MRI without and with contrast can be performed for better evaluation.
[2025-04-22] VITALS (8 sets, daily range): BP systolic 104–161; BP diastolic 72–92; PULSE 68–87; RESP 18–20; TEMP 97.4–98.2; O2SAT 96–99
--- NOTE | 2025-04-22 11:07 | DVHPN2 ---
Progress Note Date Seen: Apr 22, 2025 Medical Necessity Reason Pt with a Central, PICC or Fol: Yes The following are medically ne: Zhang Catheter Reason for zhang catheter: Bladder Retention/Obstruc Objective vital signs Vital Sign Date Time Temp Pulse Resp B/P (MAP) Pulse Ox O2 Delivery O2 Flow Rate FiO2 04/22/25 09:25 121/77 04/22/25 08:51 97.4 87 18 96 97.4 04/22/25 08:20 Room Air* 0 21 Total Intake and Output 04/21/25 04/21/25 04/22/25 15:00 23:00 07:00 Intake Total 460 ml 500 ml 580 ml Output Total 200 ml 600 ml Balance 460 ml 300 ml -20 ml medications Current Medications Medications Dose Ordered Sig/Jina Route Start Time Stop Time Status Last Admin Dose Admin Lisinopril 20 mg DAILY PO 04/15/25 10:00 04/18/25 09:21 20 MG Ceftriaxone Sodium 50 ml @ 100 mls/hr DAILY@09 IV 04/15/25 09:00 04/22/25 09:24 100 MLS/HR Ondansetron HCl 4 mg Q4HP PRN IV 04/15/25 04:30 Acetaminophen 650 mg Q6HR PO 04/15/25 08:15 04/16/25 07:07 650 MG Acetaminophen/ Hydrocodone Bitart 1 tab Q6HPRN PRN PO 04/15/25 13:00 04/22/25 06:49 1 TAB Acetaminophen/ Hydrocodone Bitart 1 tab Q8HPRN PRN PO 04/15/25 14:00 04/20/25 22:29 1 TAB Enoxaparin Sodium 40 mg DAILY SC 04/16/25 10:00 04/22/25 09:24 40 MG Enteral Nutritional Formula 240 ml BIDWM PO 04/18/25 08:30 04/22/25 09:24 240 ML Metronidazole 100 ml @ 100 mls/hr Q8H IV 04/21/25 17:00 04/22/25 10:48 100 MLS/HR laboratory and microbiology Laboratory Tests 04/21/25 09:50 Test 04/21/25 09:50 Range/Units Serum Glucose 91 74-106 mg/dL Microbiology Date/Time Source Procedure Growth Status 04/16/25 14:45 Sacrum Gram Stain - Final Resulted 04/16/25 14:45 Wound Culture - Preliminary Escherichia coli Proteus mirabilis Resulted 04/16/25 10:49 Blood Blood Culture - Final NO GROWTH AFTER 5 DAYS OF INCUBATION. Complete Problem List/Assessment/Plan Problem List/Assessment/Plan AFEBRILE VSS ABD SOFT CHOLECYSTOSTOMY TUBE IN PLACE CLAMPED WBC WNL LFT WNL HIDA SCAN CONSIDER EMERGENT/ELECTIVE GB SURGERY INDICATED Plan discussed with: Patient Dietary Evaluation Review Recommendations by RD: Protein Supplementation Comments: 1) Initiate Ensure High Protein bid 2) Initiate Avni @ 1 pk bid 3) Initiate vitamin C @ 500 mg bid and zinc sulfate @ 220 mg qd 4) Encourage optimal PO intake 5) Follow-up with gastroenterology, urology, and nephrology 6) Continue to monitor I&O, labs, and skin integrity Expected Outcomes/Goals: 1) appetite and labs to improve 2) wounds to improve 3) gradual wt loss 4) f/u in 3-5 days ANISH ADHIKARI MD Apr 22, 2025 11:07
[2025-04-22 13:54] LABS: Alanine Aminotransferase 11 U/L (7-40); Albumin 3.8 g/dL (3.2-4.8); Alkaline Phosphatase 78 U/L (46-116); Anion Gap 10 (5-15); BUN/Creatinine Ratio 19.7 (10.0-20.0); Blood Urea Nitrogen 13 mg/dL (9-23); Carbon Dioxide 26 mmol/L (20-31); Chloride 106 mmol/L (98-107); Glucose 90 mg/dL (74-106); Potassium 4.1 mmol/L (3.5-5.1); Sodium 142 mmol/L (136-145); Total Protein 6.7 g/dL (5.7-8.2)
[2025-04-22 14:00] LABS: Bilirubin, Total 0.2 mg/dL (0.2-1.0); Calcium 8.7 mg/dL (8.7-10.4)
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
[2025-04-23] VITALS (8 sets, daily range): BP systolic 107–145; BP diastolic 72–94; PULSE 66–91; RESP 16–18; TEMP 97.2–98.1; O2SAT 97–100
--- NOTE | 2025-04-23 12:56 | DVH ---
Procedure: NM NM HIDA SCAN Exam Date: 04/22/2025 03:59 PM Clinical History: CHOLELITHIASIS Comparison Study: US LIVER on DOS: 04/20/25, NM NM HIDA SCAN on DOS: 03/16/25, US LIVER on DOS: 03/13/25 Nuclear Medicine Hepatobiliary Scan. Technique: Following the intravenous administration of 5.5 mCi of technetium 99m labeled Choletec multiple plana r abdominal planar images were obtained in anterior projection in 5 minute intervals for60 minutes . Right lateral images were obtained at 17 hours after injection. Findings: The liver appears grossly normal in size. There is no abnormal persistence of the cardiac or blood po ol activity. There is non visualization of the gallbladder. There is excretion of activity into the s mall bowel. Impression: Nonvisualization of the gallbladder. This may represent cystic duct obstruction.
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
[2025-04-23] MEDS ORDERED: VANCOMYCIN PER PHARMACY 0 MG IV SCH (18:30)
[2025-04-23] MEDS: VANCOMYCIN 1GM/250ML KIT 250 ML IV SCH (19:27)
--- NOTE | 2025-04-23 21:58 | DVHPN2 ---
Progress Note Date Seen: Apr 23, 2025 Medical Necessity Reason Pt with a Central, PICC or Fol: Yes The following are medically ne: Zhang Catheter Reason for zhang catheter: Bladder Retention/Obstruc Objective vital signs Vital Sign Date Time Temp Pulse Resp B/P (MAP) Pulse Ox O2 Delivery O2 Flow Rate FiO2 04/23/25 20:36 97.7 76 18 142/94 (110) 97 97.7 04/23/25 08:00 Room Air* 0 21 Total Intake and Output 04/22/25 04/22/25 04/23/25 15:00 23:00 07:00 Intake Total 150 ml 280 ml 657 ml Output Total 800 ml Balance 150 ml 280 ml -143 ml medications Current Medications Medications Dose Ordered Sig/Jina Route Start Time Stop Time Status Last Admin Dose Admin Lisinopril 20 mg DAILY PO 04/15/25 10:00 04/18/25 09:21 20 MG Ceftriaxone Sodium 50 ml @ 100 mls/hr DAILY@09 IV 04/15/25 09:00 04/23/25 09:07 100 MLS/HR Ondansetron HCl 4 mg Q4HP PRN IV 04/15/25 04:30 Acetaminophen 650 mg Q6HR PO 04/15/25 08:15 04/16/25 07:07 650 MG Acetaminophen/ Hydrocodone Bitart 1 tab Q6HPRN PRN PO 04/15/25 13:00 04/23/25 07:30 1 TAB Acetaminophen/ Hydrocodone Bitart 1 tab Q8HPRN PRN PO 04/15/25 14:00 04/23/25 21:23 1 TAB Enoxaparin Sodium 40 mg DAILY SC 04/16/25 10:00 04/23/25 09:09 40 MG Enteral Nutritional Formula 240 ml BIDWM PO 04/18/25 08:30 04/23/25 17:12 240 ML Metronidazole 100 ml @ 100 mls/hr Q8H IV 04/21/25 17:00 04/23/25 17:12 100 MLS/HR Vancomycin HCl 0 ml @ 0 mls/hr UD IV 04/23/25 18:30 laboratory and microbiology Laboratory Tests 04/22/25 13:00 04/21/25 09:50 Test 04/22/25 13:00 Range/Units Serum Glucose 90 74-106 mg/dL Microbiology Date/Time Source Procedure Growth Status 04/16/25 14:45 Sacrum Gram Stain - Final Complete 04/16/25 14:45 Wound Culture - Final Escherichia coli Proteus mirabilis Enterococcus faecalis Complete 04/16/25 10:49 Blood Blood Culture - Final NO GROWTH AFTER 5 DAYS OF INCUBATION. Complete Problem List/Assessment/Plan Problem List/Assessment/Plan AFEBRILE VSS ABD SOFT CHOLECYSTOSTOMY TUBE IN PLACE WBC WNL LFT WNL HIDA SCAN NON FUNCTION GB REPEAT LABS AM CONSIDER EMERGENT/ELECTIVE GB SURGERY INDICATED Plan discussed with: Patient Dietary Evaluation Review Recommendations by RD: Protein Supplementation Comments: 1) Initiate Ensure High Protein bid 2) Initiate Avni @ 1 pk bid 3) Initiate vitamin C @ 500 mg bid and zinc sulfate @ 220 mg qd 4) Encourage optimal PO intake 5) Follow-up with gastroenterology, urology, and nephrology 6) Continue to monitor I&O, labs, and skin integrity Expected Outcomes/Goals: 1) appetite and labs to improve 2) wounds to improve 3) gradual wt loss 4) f/u in 3-5 days ANISH ADHIKARI MD Apr 23, 2025 21:58
[2025-04-24] VITALS (9 sets, daily range): BP systolic 93–132; BP diastolic 50–86; PULSE 64–89; RESP 16–20; TEMP 97–98.8; O2SAT 97–100
[2025-04-24 06:41] LABS: Hematocrit 33.1 % (41.0-53.0); Hemoglobin 10.8 g/dL (13.5-17.5); Mean Corpuscular Hemoglobin 25.9 pg (28.0-32.0); Mean Corpuscular Volume 79.3 fL (80.0-100.0); Nucleated Red Blood Cells % 0.2 %
[2025-04-24 07:09] LABS: Albumin 3.8 g/dL (3.2-4.8); Alkaline Phosphatase 75 U/L (46-116); Anion Gap 9 (5-15); BUN/Creatinine Ratio 12.5 (10.0-20.0); Calcium 8.9 mg/dL (8.7-10.4); Carbon Dioxide 25 mmol/L (20-31); Chloride 107 mmol/L (98-107); Glucose 86 mg/dL (74-106); Potassium 3.8 mmol/L (3.5-5.1); Sodium 141 mmol/L (136-145); Total Protein 6.8 g/dL (5.7-8.2)
[2025-04-24 07:15] LABS: Alanine Aminotransferase < 9 U/L (7-40); Bilirubin, Total 0.2 mg/dL (0.2-1.0); Blood Urea Nitrogen 8 mg/dL (9-23)
--- NOTE | 2025-04-24 10:41 | DVHPN2 ---
Progress Note Date Seen: Apr 24, 2025 Medical Necessity Reason Pt with a Central, PICC or Fol: Yes The following are medically ne: Zhang Catheter Reason for zhang catheter: Bladder Retention/Obstruc Objective vital signs Vital Sign Date Time Temp Pulse Resp B/P (MAP) Pulse Ox O2 Delivery O2 Flow Rate FiO2 04/24/25 09:41 116/73 04/24/25 09:00 97.2 64 16 98 97.2 04/23/25 19:30 Room Air* 0 21 Total Intake and Output 04/23/25 04/23/25 04/24/25 15:00 23:00 07:00 Intake Total 150 ml 700 ml 605 ml Output Total 525 ml 2100 ml Balance 150 ml 175 ml -1495 ml medications Current Medications Medications Dose Ordered Sig/Jina Route Start Time Stop Time Status Last Admin Dose Admin Lisinopril 20 mg DAILY PO 04/15/25 10:00 04/18/25 09:21 20 MG Ceftriaxone Sodium 50 ml @ 100 mls/hr DAILY@09 IV 04/15/25 09:00 04/24/25 09:41 100 MLS/HR Ondansetron HCl 4 mg Q4HP PRN IV 04/15/25 04:30 Acetaminophen 650 mg Q6HR PO 04/15/25 08:15 04/16/25 07:07 650 MG Acetaminophen/ Hydrocodone Bitart 1 tab Q6HPRN PRN PO 04/15/25 13:00 04/23/25 07:30 1 TAB Acetaminophen/ Hydrocodone Bitart 1 tab Q8HPRN PRN PO 04/15/25 14:00 04/24/25 06:00 1 TAB Enoxaparin Sodium 40 mg DAILY SC 04/16/25 10:00 04/24/25 09:46 40 MG Enteral Nutritional Formula 240 ml BIDWM PO 04/18/25 08:30 04/24/25 09:40 240 ML Metronidazole 100 ml @ 100 mls/hr Q8H IV 04/21/25 17:00 04/24/25 02:06 100 MLS/HR Vancomycin HCl 0 ml @ 0 mls/hr UD IV 04/23/25 18:30 Vancomycin HCl 100 ml @ 100 mls/hr Q12H IV 04/24/25 12:00 laboratory and microbiology Laboratory Tests 04/24/25 05:51 Test 04/24/25 05:51 Range/Units Serum Glucose 86 74-106 mg/dL Microbiology Date/Time Source Procedure Growth Status 04/16/25 14:45 Sacrum Gram Stain - Final Complete 04/16/25 14:45 Wound Culture - Final Escherichia coli Proteus mirabilis Enterococcus faecalis Complete 04/16/25 10:49 Blood Blood Culture - Final NO GROWTH AFTER 5 DAYS OF INCUBATION. Complete Problem List/Assessment/Plan Problem List/Assessment/Plan AFEBRILE VSS ABD SOFT CHOLECYSTOSTOMY TUBE IN PLACE CLAMPED WBC WNL LFT WNL HIDA SCAN NON FUNCTION GB ALLOW CHOLECYSTOSTOMY TUBE TO DRAIN CONSIDER EMERGENT/ELECTIVE GB SURGERY INDICATED Plan discussed with: Patient Dietary Evaluation Review Recommendations by RD: Protein Supplementation Comments: 1) Initiate Ensure High Protein bid 2) Initiate Avni @ 1 pk bid 3) Initiate vitamin C @ 500 mg bid and zinc sulfate @ 220 mg qd 4) Encourage optimal PO intake 5) Follow-up with gastroenterology, urology, and nephrology 6) Continue to monitor I&O, labs, and skin integrity Expected Outcomes/Goals: 1) appetite and labs to improve 2) wounds to improve 3) gradual wt loss 4) f/u in 3-5 days ANISH ADHIKARI MD Apr 24, 2025 10:41
[2025-04-24] MEDS ORDERED: VANCOMYCIN 1.5GM/250ML 250 ML IV ONE (11:00)
[2025-04-24] MEDS: VANCOMYCIN 750MG KIT 100 ML IV SCH (11:53)
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
[2025-04-25] VITALS (8 sets, daily range): BP systolic 97–162; BP diastolic 65–108; PULSE 57–81; RESP 16–18; TEMP 97.2–98.2; O2SAT 95–100
[2025-04-25 07:36] LABS: Hematocrit 34.5 % (41.0-53.0); Hemoglobin 11.5 g/dL (13.5-17.5); Mean Corpuscular Hemoglobin 26.2 pg (28.0-32.0); Mean Corpuscular Volume 78.5 fL (80.0-100.0); Nucleated Red Blood Cells % 0.2 %
[2025-04-25 07:47] LABS: INR 1.0 (0.9-1.15); Partial Thromboplastin Time 26.6 SEC (24.5-34.5); Prothrombin Time 10.6 sec (9.3-11.8)
[2025-04-25 07:48] LABS: Alanine Aminotransferase 12 U/L (7-40); Albumin 3.9 g/dL (3.2-4.8); Alkaline Phosphatase 72 U/L (46-116); Anion Gap 8 (5-15); BUN/Creatinine Ratio 13.6 (10.0-20.0); Bilirubin, Total 0.2 mg/dL (0.2-1.0); Blood Urea Nitrogen 8 mg/dL (9-23); Calcium 9.0 mg/dL (8.7-10.4); Carbon Dioxide 26 mmol/L (20-31); Chloride 107 mmol/L (98-107); Glucose 80 mg/dL (74-106); Potassium 3.8 mmol/L (3.5-5.1); Sodium 141 mmol/L (136-145); Total Protein 7.1 g/dL (5.7-8.2)
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
--- NOTE | 2025-04-25 14:35 | DVHPN2 ---
Progress Note Date Seen: Apr 25, 2025 Medical Necessity Reason Pt with a Central, PICC or Fol: Yes The following are medically ne: Zhang Catheter Reason for zhang catheter: Bladder Retention/Obstruc Objective vital signs Vital Sign Date Time Temp Pulse Resp B/P (MAP) Pulse Ox O2 Delivery O2 Flow Rate FiO2 04/25/25 13:00 97.4 70 16 128/92 (104) 100 97.4 04/25/25 08:00 Room Air* 0 21 Total Intake and Output 04/24/25 04/24/25 04/25/25 15:00 23:00 07:00 Intake Total 250 ml 410 ml 450 ml Output Total 400 ml 975 ml Balance 250 ml 10 ml -525 ml medications Current Medications Medications Dose Ordered Sig/Jina Route Start Time Stop Time Status Last Admin Dose Admin Lisinopril 20 mg DAILY PO 04/15/25 10:00 04/18/25 09:21 20 MG Ceftriaxone Sodium 50 ml @ 100 mls/hr DAILY@09 IV 04/15/25 09:00 04/25/25 08:43 100 MLS/HR Ondansetron HCl 4 mg Q4HP PRN IV 04/15/25 04:30 Acetaminophen 650 mg Q6HR PO 04/15/25 08:15 04/16/25 07:07 650 MG Acetaminophen/ Hydrocodone Bitart 1 tab Q6HPRN PRN PO 04/15/25 13:00 04/25/25 08:43 1 TAB Acetaminophen/ Hydrocodone Bitart 1 tab Q8HPRN PRN PO 04/15/25 14:00 04/24/25 18:45 1 TAB Enoxaparin Sodium 40 mg DAILY SC 04/16/25 10:00 04/25/25 08:45 40 MG Enteral Nutritional Formula 240 ml BIDWM PO 04/18/25 08:30 04/25/25 08:23 240 ML Vancomycin HCl 0 ml @ 0 mls/hr UD IV 04/23/25 18:30 Vancomycin HCl 100 ml @ 100 mls/hr Q12H IV 04/24/25 12:00 04/25/25 11:45 100 MLS/HR laboratory and microbiology Laboratory Tests 04/25/25 06:34 Test 04/25/25 06:34 Range/Units Serum Glucose 80 74-106 mg/dL Microbiology Date/Time Source Procedure Growth Status 04/16/25 14:45 Sacrum Gram Stain - Final Complete 04/16/25 14:45 Wound Culture - Final Escherichia coli Proteus mirabilis Enterococcus faecalis Complete 04/16/25 10:49 Blood Blood Culture - Final NO GROWTH AFTER 5 DAYS OF INCUBATION. Complete Problem List/Assessment/Plan Problem List/Assessment/Plan AFEBRILE VSS ABD SOFT CHOLECYSTOSTOMY TUBE IN PLACE WBC WNL LFT WNL HIDA SCAN NON FUNCTION GB ALLOW CHOLECYSTOSTOMY TUBE TO DRAIN CONSIDER EMERGENT/ELECTIVE GB SURGERY AM NURSE AT BEDSIDE Plan discussed with: Patient Dietary Evaluation Review Recommendations by RD: Protein Supplementation Comments: 1) Initiate Ensure High Protein bid 2) Initiate Avni @ 1 pk bid 3) Initiate vitamin C @ 500 mg bid and zinc sulfate @ 220 mg qd 4) Encourage optimal PO intake 5) Follow-up with gastroenterology, urology, and nephrology 6) Continue to monitor I&O, labs, and skin integrity Expected Outcomes/Goals: 1) appetite and labs to improve 2) wounds to improve 3) gradual wt loss 4) f/u in 3-5 days ANISH ADHIKARI MD Apr 25, 2025 14:35
[2025-04-26 01:00] VITALS: BP 114/82; PULSE 67; RESP 17; TEMP 97.9; O2SAT 97
[2025-04-26 05:00] VITALS: BP 110/75; PULSE 60; RESP 17; TEMP 97.6; O2SAT 99
[2025-04-26 08:48] VITALS: BP 127/79; PULSE 60; RESP 17; TEMP 96.8; O2SAT 100
[2025-04-26 12:08] LABS: Hemoglobin 11.9 g/dL (13.5-17.5)
[2025-04-26 12:10] LABS: Hematocrit 36.7 % (41.0-53.0); Mean Corpuscular Hemoglobin 25.6 pg (28.0-32.0); Mean Corpuscular Volume 79.1 fL (80.0-100.0); Nucleated Red Blood Cells % 0.2 %
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
[2025-04-26 13:04] VITALS: BP 119/84; PULSE 50; RESP 18; TEMP 98; O2SAT 99
[2025-04-26] MEDS ORDERED: ONDANSETRON HCL 4 MG/2 ML VIAL ONE (13:13)
[2025-04-26] MEDS ORDERED: HYDROmorphone HCL 2 MG/ML VL/or syr ONE (13:13)
[2025-04-26] MEDS ORDERED: GLYCOPYRROLATE 0.2 MG/ML 1ML VIAL ONE (13:13)
[2025-04-26] MEDS ORDERED: fentaNYL CITRATE 100 MCG/2 ML VL ONE (13:13)
[2025-04-26] MEDS ORDERED: KETOROLAC TROMETH 30 MG/ML 1ML VIAL ONE (13:13)
[2025-04-26] MEDS ORDERED: KETAMINE 50mg/ML 1ml syringe ONE (13:13)
[2025-04-26] MEDS ORDERED: MIDAZOLAM HCL 2MG/2ML 2ml VIAL (1mg/ml) ONE (13:13)
[2025-04-26] MEDS ORDERED: SUGAMMADEX 200mg/2ml Vial (100MG/ML) IV ONE (13:48)
--- NOTE | 2025-04-26 15:49 | DVHOP2 ---
Operative Report [id number] AC ON CHRONIC CHOLECYSTITIS WITH IR DRAIN IN PLACE LAP BLANCA REMOVAL OF IR DRAIN LAP CHOLECYSTECTOMY EBL 10 CC ONE DRAIN NO COMPLICATIONS STABLE TRANSFER TO RECOVERY ROOM ANISH ADHIKARI MD Apr 26, 2025 15:49
[2025-04-26] MEDS ORDERED: HYDROmorphone HCL 2 MG/ML VL/or syr IV PRN (16:00)
--- NOTE | 2025-04-26 16:15 | DVHOP ---
DATE OF SURGERY: 04/26/2025 PREOPERATIVE DIAGNOSIS: [id number] cholecystitis with status post IR cholecystostomy. POSTOPERATIVE DIAGNOSIS: [id number] cholecystitis with status post IR cholecystostomy. PROCEDURE: Laparoscopic lysis of adhesions with laparoscopic cholecystectomy. SURGEON: Andrews Agee MD BEFORE AND AFTER SCHOOL DAYCARE WORKER: None. ANESTHESIA: General. ESTIMATED BLOOD LOSS: Close to 10 mL. DRAINS: One drain was used. COMPLICATIONS: No complications were encountered. DESCRIPTION OF PROCEDURE: The patient was prepped and draped in the usual sterile fashion. In the supine position, an infraumbilical incision was applied and taken down to the fascia. The Veress needle was introduced and CO2 insufflation was started with a pressure of 15 mmHg. The needle was withdrawn and replaced by the 5 mm trocar. The telescope introduced and the gallbladder was found to be chronically inflamed with a cholecystostomy tube in place and adhesions were noted. To allow visibility, a 5 mm port was applied in the right upper abdomen and another 5 mm port was applied in the right lower quadrant, in the right upper quadrant more laterally. With the patient in the head up and right upper lateral position, the omental adhesions were taken down using a Harmonic device and the gallbladder was able to be visualized, and then it was grasped at the fundus and the cystic duct and artery were not clearly identified. However, the cystic artery was finally identified and clipped proximally and distally using the clips and divided between making sure the CBD was kept out of harm's way at all times. Then it was realized that the cystic duct was completely closed off and there was no leakage noted from the CBD. The remnant of the cystic duct was closely adherent to the infundibulum of the gallbladder. With this in mind, the gallbladder dissection was then carried out from the fundus down to the infundibulum using the Harmonic device and once released, it was removed from the abdomen through the 5 mm port that was converted to a 12 mm port to allow the gallbladder to be delivered in an EndoCatch bag. With this being done, that was when the gallbladder was examined and the anatomy of the cystic duct was then defined. There was no flow noted from the cystic duct, but the opening was visible. It was a very small opening attached to the infundibulum. With this being done, irrigation was performed. Hemostasis was secured. A size 19 Rafat drainage tube was placed to drain the right upper abdomen through another incision that was applied and a 5 mm trocar was introduced to allow the drainage to be pulled out. Then the trocar was withdrawn and the drain was secured with a silk suture after the drainage tube was located adequately in the liver bed area. With this being done, the EndoClose suture was used for the fascial closure of the xiphisternal wound. All the ports were withdrawn after all the CO2 had been let out and the patient was placed back supine. The wound was then brought together using 3-0 Monocryl suture in a subcuticular fashion. Surgical glue was applied. The patient tolerated the procedure well. He was taken back to the recovery room in a stable condition. Andrews Agee MD RG/SUB TID: [id number] RECEIPT: [id number] cc: Esteban Frazier MD
[2025-04-26 20:00] VITALS: PULSE 65; RESP 18; O2SAT 98
[2025-04-26] MEDS: KETOROLAC TROMETH 30 MG/ML 1ML VIAL IV ONE (20:22)
[2025-04-26 21:00] VITALS: BP 145/100; PULSE 65; RESP 18; TEMP 97; O2SAT 98
[2025-04-27 01:00] VITALS: BP 132/83; PULSE 77; RESP 18; TEMP 98; O2SAT 96
[2025-04-27] MEDS: MORPHINE SULFATE INJ 2 MG/ml SYRG IV ONE (03:29)
[2025-04-27 05:00] VITALS: BP 114/73; PULSE 74; RESP 18; TEMP 97.4; O2SAT 96
[2025-04-27 06:00] LABS: Hematocrit 33.9 % (41.0-53.0); Hemoglobin 11.3 g/dL (13.5-17.5); Mean Corpuscular Hemoglobin 26.2 pg (28.0-32.0); Mean Corpuscular Volume 78.5 fL (80.0-100.0); Nucleated Red Blood Cells % 0.1 %
[2025-04-27 06:20] LABS: Alanine Aminotransferase 16 U/L (7-40); Albumin 3.9 g/dL (3.2-4.8); Alkaline Phosphatase 70 U/L (46-116); Anion Gap 12 (5-15); BUN/Creatinine Ratio 14.0 (10.0-20.0); Calcium 9.0 mg/dL (8.7-10.4); Carbon Dioxide 24 mmol/L (20-31); Chloride 104 mmol/L (98-107); Glucose 96 mg/dL (74-106); Potassium 4.2 mmol/L (3.5-5.1); Sodium 140 mmol/L (136-145); Total Protein 7.1 g/dL (5.7-8.2)
[2025-04-27 06:22] LABS: Bilirubin, Total 0.2 mg/dL (0.2-1.0); Blood Urea Nitrogen 8 mg/dL (9-23)
[2025-04-27 08:41] VITALS: BP 123/85; PULSE 80; RESP 19; TEMP 97.6; O2SAT 95
[2025-04-27] MEDS: KETOROLAC TROMETH 30 MG/ML 1ML VIAL IV ONE (10:40)
[2025-04-27 12:56] VITALS: BP 123/73; PULSE 58; RESP 17; TEMP 97.9; O2SAT 97
[2025-04-27 16:38] VITALS: BP 120/73; PULSE 66; RESP 17; TEMP 98; O2SAT 98
[2025-04-27] MEDS: FAMOTIDINE (10MG/ML) 2ML VL IV SCH (17:44)
[2025-04-27] MEDS: KETOROLAC TROMETH 30 MG/ML 1ML VIAL IV PRN (17:44)
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
--- NOTE | 2025-04-27 19:06 | DVHPN2 ---
Progress Note Date Seen: Apr 27, 2025 Medical Necessity Reason Pt with a Central, PICC or Fol: Yes The following are medically ne: Zhang Catheter Reason for zhang catheter: Bladder Retention/Obstruc Objective vital signs Vital Sign Date Time Temp Pulse Resp B/P (MAP) Pulse Ox O2 Delivery O2 Flow Rate FiO2 04/27/25 16:38 98.0 66 17 120/73 (89) 98 98.0 04/27/25 08:00 Room Air* 0 21 Total Intake and Output 04/26/25 04/26/25 04/27/25 15:00 23:00 07:00 Intake Total 250 ml 0 ml 540 ml Output Total 40 ml 550 ml Balance 250 ml -40 ml -10 ml medications Current Medications Medications Dose Ordered Sig/Jina Route Start Time Stop Time Status Last Admin Dose Admin Lisinopril 20 mg DAILY PO 04/15/25 10:00 04/18/25 09:21 20 MG Ceftriaxone Sodium 50 ml @ 100 mls/hr DAILY@09 IV 04/15/25 09:00 04/27/25 10:26 100 MLS/HR Ondansetron HCl 4 mg Q4HP PRN IV 04/15/25 04:30 Acetaminophen 650 mg Q6HR PO 04/15/25 08:15 04/16/25 07:07 650 MG Acetaminophen/ Hydrocodone Bitart 1 tab Q6HPRN PRN PO 04/15/25 13:00 Hold 04/26/25 11:34 1 TAB Acetaminophen/ Hydrocodone Bitart 1 tab Q8HPRN PRN PO 04/15/25 14:00 Hold 04/24/25 18:45 1 TAB Enoxaparin Sodium 40 mg DAILY SC 04/16/25 10:00 04/27/25 10:26 40 MG Enteral Nutritional Formula 240 ml BIDWM PO 04/18/25 08:30 04/26/25 08:45 240 ML Vancomycin HCl 0 ml @ 0 mls/hr UD IV 04/23/25 18:30 Vancomycin HCl 100 ml @ 100 mls/hr Q12H IV 04/24/25 12:00 04/27/25 12:43 100 MLS/HR Ketorolac Tromethamine 15 mg Q6HPRN PRN IV 04/27/25 16:45 04/28/25 16:45 04/27/25 17:44 15 MG Famotidine 20 mg BID IV 04/27/25 16:45 04/28/25 16:45 04/27/25 17:44 20 MG Enteral Nutritional Formula 27.5 gm DAILY PO 04/28/25 10:00 laboratory and microbiology Laboratory Tests 04/27/25 05:20 Test 04/27/25 05:20 Range/Units Serum Glucose 96 74-106 mg/dL Microbiology Date/Time Source Procedure Growth Status 04/16/25 14:45 Sacrum Gram Stain - Final Complete 04/16/25 14:45 Wound Culture - Final Escherichia coli Proteus mirabilis Enterococcus faecalis Complete 04/16/25 10:49 Blood Blood Culture - Final NO GROWTH AFTER 5 DAYS OF INCUBATION. Complete Problem List/Assessment/Plan Problem List/Assessment/Plan AFEBRILE VSS ABD SOFT WBC WNL LFT WNL S/P LAP CHOLECYSTECTOMY NO COMPLICATIONS DRAIN 30 CC SEROUS NG IN PLACE 500 CC BILE STAINED ALLOW ICE CHIPS CLAMP NG NURSE AT BEDSIDE Plan discussed with: Patient My Orders My Orders Orders - ANISH ADHIKARI MD Procedure Category Date Status Time Communication Order ORDERS 04/27/25 Transmitted 18:58 Dietary Evaluation Review Recommendations by RD: Protein Supplementation Comments: 1) Initiate Ensure High Protein bid 2) Initiate Avni @ 1 pk bid 3) Initiate vitamin C @ 500 mg bid and zinc sulfate @ 220 mg qd 4) Encourage optimal PO intake 5) Follow-up with gastroenterology, urology, and nephrology 6) Continue to monitor I&O, labs, and skin integrity Expected Outcomes/Goals: 1) appetite and labs to improve 2) wounds to improve 3) gradual wt loss 4) f/u in 3-5 days ANISH ADHIKARI MD Apr 27, 2025 19:06
[2025-04-27 21:00] VITALS: BP 114/76; PULSE 48; RESP 18; TEMP 98.4; O2SAT 99
[2025-04-27] MEDS ORDERED: IBUPROFEN 400 MG TAB PO SCH (22:00)
[2025-04-28] VITALS (8 sets, daily range): BP systolic 122–151; BP diastolic 72–99; PULSE 52–68; RESP 17–19; TEMP 96.6–98.3; O2SAT 97–99
[2025-04-28] MEDS: Juven Orange Powder PACKET 27.5gm PO SCH (09:46)
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
[2025-04-28] MEDS: ACETAMINOPHEN 325 MG TAB PO ONE (20:51)
[2025-04-29] VITALS (7 sets, daily range): BP systolic 120–151; BP diastolic 77–97; PULSE 58–75; RESP 17–19; TEMP 97.7–98.5; O2SAT 96–99
[2025-04-29] MEDS: HYDROcodone-ACET 5/325MG TAB PO ONE (00:03)
[2025-04-29 07:11] LABS: Hematocrit 35.6 % (41.0-53.0); Hemoglobin 11.5 g/dL (13.5-17.5); Mean Corpuscular Hemoglobin 25.6 pg (28.0-32.0); Mean Corpuscular Volume 79.4 fL (80.0-100.0); Nucleated Red Blood Cells % 0.2 %
[2025-04-29 07:24] LABS: Alanine Aminotransferase 17 U/L (7-40); Albumin 3.9 g/dL (3.2-4.8); Alkaline Phosphatase 69 U/L (46-116); Anion Gap 10 (5-15); BUN/Creatinine Ratio 16.9 (10.0-20.0); Blood Urea Nitrogen 11 mg/dL (9-23); Calcium 8.8 mg/dL (8.7-10.4); Carbon Dioxide 27 mmol/L (20-31); Chloride 105 mmol/L (98-107); Glucose 76 mg/dL (74-106); Sodium 142 mmol/L (136-145); Total Protein 7.1 g/dL (5.7-8.2)
[2025-04-29 07:29] LABS: Bilirubin, Total 0.3 mg/dL (0.2-1.0); Potassium 3.2 mmol/L (3.5-5.1)
[2025-04-29] MEDS: POTASSIUM CHLORIDE 40 MEQ, LIDOCAINE 1% (LOCAL ANESTH.) 4 ML in SODIUM CHL 0.9% 250 ML IV ONE (10:54)
[2025-04-29] MEDS ORDERED: VANCOMYCIN 500mg/100mL 100 ML IV SCH (12:00)
[2025-04-29] MEDS: VANCOMYCIN 750MG KIT 100 ML IV SCH (12:30)
[2025-04-29] MEDS: HYDROcodone-ACET 5/325MG TAB PO PRN (14:51)
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
[2025-04-30] VITALS (7 sets, daily range): BP systolic 139–162; BP diastolic 78–104; PULSE 59–78; RESP 16–18; TEMP 97.6–98.5; O2SAT 96–99
[2025-04-30 09:07] LABS: Alanine Aminotransferase 35 U/L (7-40); Albumin 3.9 g/dL (3.2-4.8); Alkaline Phosphatase 80 U/L (46-116); Anion Gap 12 (5-15); BUN/Creatinine Ratio 14.1 (10.0-20.0); Blood Urea Nitrogen 9 mg/dL (9-23); Calcium 8.9 mg/dL (8.7-10.4); Carbon Dioxide 23 mmol/L (20-31); Chloride 106 mmol/L (98-107); Glucose 74 mg/dL (74-106); Potassium 4.2 mmol/L (3.5-5.1); Sodium 141 mmol/L (136-145); Total Protein 6.9 g/dL (5.7-8.2)
[2025-04-30 09:08] LABS: Bilirubin, Total 0.3 mg/dL (0.2-1.0)
[2025-04-30 10:43] LABS: Hematocrit 35.3 % (41.0-53.0); Hemoglobin 11.4 g/dL (13.5-17.5); Mean Corpuscular Hemoglobin 25.4 pg (28.0-32.0); Mean Corpuscular Volume 78.8 fL (80.0-100.0); Nucleated Red Blood Cells % 0.2 %
[2025-04-30] MEDS: ACETAMINOPHEN IV 1000 MG/100ML (10MG/ML) IV ONE (11:54)
[2025-04-30] MEDS: ONDANSETRON HCL 4 MG/2 ML VIAL IV ONE (11:54)
[2025-04-30 13:42] LABS: Urine Protein, UAD 2+ (Negative)
[2025-04-30] MEDS ORDERED: NUTR-559 PO (15:46)
[2025-04-30] MEDS ORDERED: LINE1TAB6 PO (15:46)
[2025-04-30] MEDS ORDERED: CEPH500T PO (15:48)
[2025-04-30] MEDS ORDERED: METR-344 PO (15:49)
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
== END 2025-04-30 17:49 | disposition home or self-care (01) | DRG 263 ==
LOC: ER 13:58 → EDBD 13:58 → OVERFLOW 19:20 → CENTRAL 04-15 22:02
PROVIDERS: ADMIT Student in an Organized Health Care Education/Training Program; ATTEND Radiology Diagnostic Radiology
PROC: 0T25X0Z Change Drainage Device in Kidney, External Approach (ICD-10-PCS; 2025-04-19)
PROC: 0FT44ZZ Resection of Gallbladder, Percutaneous Endoscopic Approach (ICD-10-PCS; principal; 2025-04-26 13:17)
DX: K80.12 Calculus of gallbladder with acute and chronic cholecystitis without obstruction (principal); G82.50 Quadriplegia, unspecified; L89.154 Pressure ulcer of sacral region, stage 4; N13.6 Pyonephrosis; I10 Essential (primary) hypertension; T83.022A Displacement of nephrostomy catheter, initial encounter; K82.8 Other specified diseases of gallbladder; K66.0 Peritoneal adhesions (postprocedural) (postinfection); B96.29 Other Escherichia coli [E. coli] as the cause of diseases classified elsewhere; Z88.1 Allergy status to other antibiotic agents; Z87.442 Personal history of urinary calculi; Z83.3 Family history of diabetes mellitus; Z82.49 Family history of ischemic heart disease and other diseases of the circulatory system; Z74.01 Bed confinement status; Z88.8 Allergy status to other drugs, medicaments and biological substances; Y73.2 Prosthetic and other implants, materials and accessory gastroenterology and urology devices associated with adverse incidents; Z79.899 Other long term (current) drug therapy
CPT/HCPCS: 36415; 50435; 74176; 74425; 76705; 78226; 80048; 80053; 80202; 81001; 82565; 85025; 85610; 85730; 86850; 86900; 86901; 87040; 87077; 87186; 87205; 97163; 99152; G0378; J1100; J1885; J2003; J2250; J2405; J3490; Q9967

== ENCOUNTER 2025-05-12 08:43 | Emergency (ER) | payer MEDICAID ==
[~2025-05-12] VITALS: Ht 177.8 cm; Wt 81.8 kg
[~2025-05-12 08:43] MED LIST changes: -AUG875T PO; +CEPH500T PO; +LINE1TAB6 PO; +METR-344 PO; +NUTR-559 PO
--- NOTE | 2025-05-12 09:25 | ED.PDOC ---
History of Present Illness HPI Comments This is a 39 year old male ANABELLA presenting to the ED with chief complaint of tube removal. Patient reports that he had a cholecystectomy performed a week ago. Patient relays that he was advised by his surgeon to return to the ED for removal of the drain after there is less than 150ccs of fluid in the drainage reservoir after 24 hours. Patient denies ay abdominal pain, fever, chills, N/V/D, or drainage. Chief Complaint: Tube Replacement Time Seen by MD: 09:23 Primary Care Provider: ANITA Johnson Notes: Nurses Notes, Bobbin Inspector Notes, Medications, Allergies Allergies: Coded Allergies: Clindamycin (Verified Allergy, Unknown, 03/12/25) Home Meds Active Scripts Metronidazole (Flagyl) 500 Mg Tab, 500 MG PO TID for 7 Days, #21 TAB Prov:JANEY ESPARZA 04/30/25 Cephalexin Monohydrate (Cephalexin) 500 Mg Tab, 500 MG PO BID for 15 Days, #30 TAB Prov:JANEY ESPARZA 04/30/25 Linezolid (Zyvox) 600 Mg Tab, 600 MG PO BID for 14 Days, #28 TAB Prov:JANEY ESPARZA 04/30/25 Nutritional Supplements (Ensure High Protein) Wld Bery Liq, 240 ML PO BIDWM for 30 Days, #60 LIQ Prov:JANEY ESPARZA 04/30/25 Hydrocodone-Acetaminophen (Hydrocodone Bitartrate/AC 10-325 mg) 1 Tab Tab, 1 TAB PO QIDP PRN for 7 Days, #28 TAB 0 Refills Prov:ARISTEO MENESES MD 03/21/25 Information Source: Patient Mode of Arrival: EMS Severity: Mild Timing: Hours Duration: Since onset Prehospital treatment: None Past Medical History Past Medical History (Other): Paraplegic Surgical History: Cholecystectomy Family History Family History: Reviewed,noncontributory to illness, Unknown Social History Smoker: Non-Smoker Alcohol: Denies ETOH Use Drugs: Denies Drug Use Lives In: Home Constitutional: denies: chills, diaphoresis, fatigue, fever, malaise, sweats, weakness, others EENTM: denies: blurred vision, double vision, ear bleeding, ear discharge, ear drainage, ear pain, ear ringing, eye pain, eye redness, hearing loss, mouth pain, mouth swelling, nasal discharge, nose bleeding, nose congestion, nose pain, photophobia, tearing, throat pain, throat swelling, voice changes, others Respiratory: denies: cough, hemoptysis, orthopnea, SOB at rest, shortness of breath, SOB with excertion, stridor, wheezing, others Cardiovascular: denies: chest pain, dizzy spells, diaphoresis, Dyspnea on exertion, edema, irregular heart beat, left arm pain, lightheadedness, palpitations, PND, syncope, others Gastrointestinal: denies: abdomen distended, abdominal pain, blood streaked bowels, constipated, diarrhea, dysphagia, difficulty swallowing, hematemesis, melena, nausea, poor appetite, poor fluid intake, rectal bleeding, rectal pain, vomiting, others Genitourinary: denies: burning, dysuria, flank pain, frequency, hematuria, incontinence, penile discharge, penile sore, pain, testicle pain, testicle swelling, urgency, others Neurological: denies: dizziness, fainting, headache, left sided numbness, left sided weakness, numbness, paresthesia, pre-existing deficit, right sided numbness, right sided weakness, seizure, speech problems, tingling, tremors, wea kness, others Musculoskeletal: denies: back pain, gout, joint pain, joint swelling, muscle pain, muscle stiffness, neck pain, others Integumetry: denies: bruises, change in color, change in hair/nails, dryness, l aceration, lesions, lumps, rash, wounds, others Allergic/Immunocompromised: denies: Difficulty Healing, Frequent Infections, Hives, Itching, others Hematologic/Lymphatic: denies: anemia, blood clots, easy bleeding, easy bruising, swollen glands, others Endocrine: denies: excessive hunger, excessive sweating, excessive thirst, excessive urination, flushing, intolerance to cold, intolerance to heat, unexplained weight gain, unexplained weight loss, others Psychiatric: denies: anxiety, bipolar disorder, depression, hopeless, panic disorder, schizophrenia, sleepless, suicidal, others All Other Systems: Reviewed and Negative Physical Exam General Appearance: No Apparent Distress, Normal HEENT: Normal ENT Inspection, PERRL/EOMI, Pharynx Normal, TMs Normal Neck: Full Range of Motion, Non-Tender, Normal, Normal Inspection Respiratory: Chest Non-Tender, Lungs Clear, No Accessory Muscle Use, No Respiratory Distress, Normal Breath Sounds Cardiovascular: No Edema, No JVD, No Murmur, No Gallop, Normal Peripheral Pulses, Regular Rate/Rhythm Breast Exam: Deferred Gastrointestinal: No Organomegaly, Non Tender, No Pulsatile Mass, Normal Bowel Sounds, Soft, Other (Gallbladder drainage tube in place) Genitalia: Deferred Pelvic: Deferred Rectal: Deferred Extremities: Normal capillary refill, Non-tender Musculoskeletal : Apperance: Normal Neurologic: Alert, buyer assistant II-XII nml as Tested, Normal Affect, Normal Mood Cerebellar Function: Normal Reflexes: Normal Skin: Dry, Normal Color, Warm Peripheral Pulses: 1+ carotid (R), 1+ carotid (L) Lymphatic: No Adenopathy Was a procedure done? Was a procedure done?: Yes Sedation Sedation?: No Other Procedure Procedure Gallbladder drain removed postsurgical No complications patient patient is has no pain Differential Dx Considerations may include: Drainage tube removal X-Ray, Labs, Meds, VS Vital Signs Date Time Temp Pulse Resp B/P (MAP) Pulse Ox O2 Delivery O2 Flow Rate FiO2 05/12/25 13:54 92 18 98 Room Air* 0 21 05/12/25 13:54 98.4 92 18 141/53 (82) 98 98.4 05/12/25 08:51 98.4 92 18 141/53 98 98.4 X-Ray, Labs, Meds, VS Comment Course in the emergency department uneventful Patient had the drain from his gallbladder surgery that needed to be removed The gallbladder drain has been removed without any issues Patient will be discharged home to follow up with the surgeon Time of 1ST Reevaluation: 09:15 Reevaluation 1ST: Unchanged Time of 2ND Reevaluation: 09:34 Reevaluation 2ND: Improved Consultation: PCP, Surgery Patient Education/Counseling: Diagnosis, Treatment, Prognosis, Need For Follow Up Family Education/Counseling: Diagnosis, Treatment, Prognosis, Need For Follow Up, No Family Present SEPSIS Sepsis Screen Date sepsis recognized/suspect: May 12, 2025 Time Sepsis recognized/suspect: 850 Recent Procedure: Yes On Antibiotic Therapy: Yes Respiratory Rate >20: No Heart Rate >90: No Temp<36 C (96.8 F) or >38.3 C: No SBP <90 or MAP <65 mmHG: No New Acute Mental Status Change: No Is the patient on CPAP, BIPAP,: No Physician Orders * [employer] Program Manager Consult (05/12/25 ) Vital Signs Date Time Temp Pulse Resp B/P (MAP) Pulse Ox O2 Delivery O2 Flow Rate FiO2 05/12/25 13:54 92 18 98 Room Air* 0 21 05/12/25 13:54 98.4 92 18 141/53 (82) 98 98.4 05/12/25 08:51 98.4 92 18 141/53 98 98.4 Departure 1 Departure Time of Disposition: 09:30 Impression: Primary Impression: Removal of wound drain performed Disposition: HOME / SELF CARE / HOMELESS Condition: Fair Additional Instructions: Follow up with your surgeon and keep the access tube clean and dry Discharged With: Self Critical Care Note Critical Care Time?: No Stability Stability form required: No Heart Score Heart Score: Heart Score Response (Comments) Value History N/A 0 EKG N/A 0 Age <45 0 Risk Factors N/A 0 Troponin N/A 0 Total 0 I personally scribed for KAMRAN HOBSON MD ([email or web address]) on 05/12/25 at 09:25. Electronically submitted by Wilber Pineda ([email or web address]). KAMRAN HOBSON MD May 12, 2025 09:25
[2025-05-12 13:54] VITALS: BP 141/53; PULSE 92; RESP 18; TEMP 98.4; O2SAT 98
== END 2025-05-12 14:00 | disposition home or self-care (01) ==
LOC: ER 08:43 → EDBD 08:43 → ER 13:56
DX: Z48.03 Encounter for change or removal of drains (principal); Z90.49 Acquired absence of other specified parts of digestive tract; Z88.1 Allergy status to other antibiotic agents